=== PATIENT | female | born 1960 | race American Indian/Alaskan Native ===

== ENCOUNTER 2017-07-20 16:34 | Emergency (ER) | payer MEDICAID, OTHER ==
--- NOTE | 2017-07-20 19:07 | EDM.PDOC ---
ED HPI GENERAL MEDICAL PROBLEM - General Chief Complaint: General Stated Complaint: DON'T FEEL GOOD [id number] Time Seen by Provider: 07/20/17 19:04 Source of Information: Reports: Patient History Limitations: Reports: No Limitations - History of Present Illness INITIAL COMMENTS - FREE TEXT/NARRATIVE: 1 week h/o not feeling good not seen anyone and not getting feels worse tonight , also had F/C body aches. been having diarrhoea on off, did eat peanut butter toast today and now feels worse. 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 Head Pain Score (Numeric/FACES): 7 - Related Data Allergies Allergy/AdvReac Type Severity Reaction Status Date / Time amoxicillin Allergy Rash Verified 07/20/17 18:55 ampicillin Allergy Rash Verified 07/20/17 18:55 aspirin Allergy Stomach Verified 07/20/17 18:55 Upset lactose Allergy Diarrhea Verified 07/20/17 18:55 lisinopril Allergy Cough Verified 07/20/17 18:55 Penicillins Allergy Rash Verified 07/20/17 18:55 tomato Allergy Other Verified 07/20/17 18:55 kwell Allergy Other Uncoded 07/20/17 18:55 seasonal allergies Allergy Other Uncoded 07/20/17 18:55 Home Meds: Home Meds Aspirin [Adult Low Dose Aspirin EC] 81 mg PO DAILY 11/17/13 [History] Calcium Citrate/Vitamin D3 [Calcium Citrate - Vit D3 Tab] 1 tab PO BID 11/17/13 [History] Gemfibrozil [Lopid] 600 mg PO BIDAC 11/17/13 [History] Loratadine [Claritin] 10 mg PO DAILY 11/17/13 [History] Losartan [Cozaar] 25 mg PO DAILY 11/17/13 [History] PARoxetine HCl [Paroxetine HCl] 40 mg PO DAILY 11/17/13 [History] Simvastatin [Zocor] 20 mg PO BEDTIME 11/17/13 [History] Insulin Detemir [Levemir] 35 units SQ BID 05/11/14 [History] Omeprazole 20 mg PO DAILY 10/03/14 [History] sitaGLIPtin Phos/Metformin HCl [Janumet 50-1,000 MG] 1 each PO BID 10/03/14 [ History] Past Medical History HEENT History: Reports: Allergic Rhinitis, Impaired Vision Cardiovascular History: Reports: Angina, High Cholesterol, Hypertension Other Respiratory History: has been treated for asthma but states she isn't sure that she has asthma Gastrointestinal History: Reports: Chronic Constipation, Chronic Diarrhea, GERD Genitourinary History: Reports: None 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 Neurological History: Reports: None Psychiatric History: Reports: Panic Attack Endocrine/Metabolic History: Reports: Diabetes, Type II, IDDM, Obesity/BMI 30+ Hematologic History: Reports: None Immunologic History: Reports: None Oncologic (Cancer) History: Reports: None Dermatologic History: Reports: Eczema - Infectious Disease History Infectious Disease History: Reports: MRSA - Past Surgical History Head Surgeries/Procedures: Reports: None GI Surgical History: Reports: Appendectomy, Cholecystectomy Social & Family History - Family History Family Medical History: Noncontributory Endocrine/Metabolic: Reports: Diabetes, type II - Tobacco Use Smoking Status *Q: Never Smoker Years of Tobacco use: 30 Packs/Tins Daily: 2 Used Tobacco, but Quit: Yes Month Tobacco Last Used: 2003 Second Hand Smoke Exposure: No - Caffeine Use Caffeine Use: Reports: Coffee Other Caffeine Use: 2 cup/AM - Alcohol Use Days Per Week of Alcohol Use: 0 - Recreational Drug Use Recreational Drug Use: No - Living Situation & Occupation Living situation: Reports: with Family Occupation: Employed ED ROS GENERAL - Review of Systems Review Of Systems: ROS reveals no pertinent complaints other than HPI. ED EXAM, GENERAL - Physical Exam Exam: See Below Exam Limited By: No Limitations General Appearance: Alert, WD/WN, Mild Distress, Other (discomfort) Ears: Hearing Grossly Normal Throat/Mouth: Normal Voice, No Airway Compromise Head: Atraumatic Neck: Non-Tender, Full Range of Motion Respiratory/Chest: No Respiratory Distress Cardiovascular: Regular Rate, Rhythm GI/Abdominal: Soft, Tender, Other (BS hyper, minimal periumb discomfort). No: Distended, Guarding, Rigid, Rebound Neurological: Alert, Oriented, Normal Cognition, Normal Gait, No Motor/Sensory Deficits Psychiatric: Flat Affect Skin Exam: Warm, Dry, Normal Color Lymphatic: No Adenopathy Course - Vital Signs Last Recorded V/S: Last Vital Signs Temp 36.2 C 07/20/17 18:49 Pulse 82 07/20/17 18:49 Resp 16 07/20/17 18:49 BP 151/76 H 07/20/17 18:49 Pulse Ox 95 07/20/17 18:49 - Orders/Labs/Meds Orders: Active Orders 24 hr Category Date Time Status Dicyclomine [Bentyl] Med 07/20/17 19:46 Once 20 mg IM ONETIME ONE Loperamide [Imodium] Med 07/20/17 19:46 Once 2 mg PO ONETIME ONE Labs: Laboratory Tests 07/20/17 07/20/17 07/20/17 Range/Units 19:10 19:10 19:10 WBC 8.5 (5.0-10.0) 10^3/uL RBC 4.84 (4.2-5.4) 10^6/uL Hgb 13.1 (12.0-16.0) g/dL Hct 40.2 (37.0-47.0) % MCV 83.1 (80-100) fL MCH 27.1 (27.0-34.0) pg MCHC 32.6 L (33.0-35.0) g/dL Plt Count 291 (150-450) 10^3/uL Neut % (Auto) 58.7 (42.2-75.2) % Lymph % (Auto) 33.1 (20.5-50.1) % [place] % (Auto) 6.2 (2-8) % Eos % (Auto) 1.4 (1.0-3.0) % Baso % (Auto) 0.6 (0.0-1.0) % Sodium 135 (135-145) mmol/L Potassium 3.8 (3.6-5.0) mmol/L Chloride 97 L (101-111) mmol/L Carbon Dioxide 29.0 (21.0-31.0) mmol/L Anion Gap 12.8 BUN 16 (7-18) mg/dL Creatinine 0.7 (0.6-1.3) mg/dL Est Cr Clr Drug Dosing 67.72 mL/min Estimated GFR (MDRD) > 60 BUN/Creatinine Ratio 22.85 Glucose 243 H (74-105) mg/dL Lactic Acid 1.6 (0.5-2.2) mmol/L Calcium 9.8 (8.4-10.2) mg/dl Total Bilirubin 0.8 (0.2-1.0) mg/dL AST 37 (10-42) IU/L ALT 31 (10-60) IU/L Alkaline Phosphatase 85 (42-121) IU/L Total Protein 7.3 (6.7-8.2) g/dl Albumin 3.9 (3.2-5.5) g/dl Globulin 3.4 Albumin/Globulin Ratio 1.15 - Re-Assessments/Exams Free Text/Narrative Re-Assessment/Exam: 07/20/17 19:47 results discussed with pt. Departure - Departure Time of Disposition: 19:47 Disposition: Home, Self-Care 01 Condition: Good Clinical Impression: Gastroenteritis and colitis, viral - Discharge Information Instructions: Viral Gastroenteritis, Adult, [id number] Forms: ED Department Discharge Additional Instructions: 1) avoid solid foods next 48 hours 2) follow up at clinic rx given; bentyl 10mg bid prn cramps x 12 imodium qid prn - My Orders Last 24 Hours: My Active Orders 07/20/17 19:46 Dicyclomine [Bentyl] 20 mg IM ONETIME ONE Loperamide [Imodium] 2 mg PO ONETIME ONE - Assessment/Plan Last 24 Hours: My Active Orders 07/20/17 19:46 Dicyclomine [Bentyl] 20 mg IM ONETIME ONE Loperamide [Imodium] 2 mg PO ONETIME ONE
[2017-07-20 19:36] LABS: ANION GAP 12.8; CHLORIDE,CL 97 mmol/L (101-111); SODIUM,NA 135 mmol/L (135-145)
[2017-07-20] MEDS ORDERED: Dicyclomine 20 MG/2 ML SDV IM ONE (19:46)
[2017-07-20] MEDS ORDERED: Loperamide 2 MG Cap PO ONE (19:46)
[2017-07-20 20:13] VITALS: BP 124/78
== END 2017-07-20 20:15 | disposition home or self-care (01) ==
LOC: DL.ED 16:34
DX: A08.4 Viral intestinal infection, unspecified (principal); I10 Essential (primary) hypertension; E78.00 Pure hypercholesterolemia, unspecified; K21.9 Gastro-esophageal reflux disease without esophagitis; E11.9 Type 2 diabetes mellitus without complications; F41.0 Panic disorder [episodic paroxysmal anxiety]; Z87.891 Personal history of nicotine dependence; Z79.4 Long term (current) use of insulin; Z79.82 Long term (current) use of aspirin; Z79.899 Other long term (current) drug therapy; Z88.0 Allergy status to penicillin; Z88.1 Allergy status to other antibiotic agents; Z88.6 Allergy status to analgesic agent; Z88.8 Allergy status to other drugs, medicaments and biological substances; Z91.018 Allergy to other foods; Z91.048 Other nonmedicinal substance allergy status
CPT/HCPCS: 36415; 80053; 83605; 85025; 87804; 96372; 99283; A9270; J0500

== ENCOUNTER 2017-11-30 21:08 | Emergency (ER) | payer OTHER ==
[2017-11-30 21:23] VITALS: BP 131/72
[2017-11-30 21:56] LABS: CHLORIDE,CL 98 mmol/L (101-111); SODIUM,NA 135 mmol/L (135-145)
[2017-11-30] MEDS ORDERED: LORazepam 0.5 MG Tab PO ONE (22:25)
--- NOTE | 2017-11-30 22:31 | EDM.PDOC ---
ED HPI GENERAL MEDICAL PROBLEM - General Chief Complaint: Chest Pain Stated Complaint: CHEST PAIN [id number] Time Seen by Provider: 11/30/17 22:10 Source of Information: Reports: Patient History Limitations: Reports: No Limitations - History of Present Illness INITIAL COMMENTS - FREE TEXT/NARRATIVE: This 57 yo female patient reports to the ED with chest pain. The patient reports her symptoms started at about 1500 today and have been intermittent since that time. The patient reports her symptoms feel like a "heaviness" and like she is starting to have a panic attack. The patient reports her symptoms come and go, but have not gotten much worse since her symptoms started. Onset: Today Onset Date: 11/30/17 Onset Time: 15:00 Duration: Intermittent Location: Reports: Chest Quality: Reports: Other Severity: Moderate Improves with: Reports: None Worsens with: Reports: None Associated Symptoms: Reports: No Other Symptoms Mid-Sternal Chest Pain Score (Numeric/FACES): 6 - Related Data Allergies Allergy/AdvReac Type Severity Reaction Status Date / Time amoxicillin Allergy Rash Verified 11/30/17 21:24 ampicillin Allergy Rash Verified 11/30/17 21:24 aspirin Allergy Stomach Verified 11/30/17 21:24 Upset lactose Allergy Diarrhea Verified 11/30/17 21:24 lisinopril Allergy Cough Verified 11/30/17 21:24 Penicillins Allergy Rash Verified 11/30/17 21:24 tomato Allergy Other Verified 11/30/17 21:24 kwell Allergy Other Uncoded 11/30/17 21:24 seasonal allergies Allergy Other Uncoded 11/30/17 21:24 Home Meds: Home Meds Aspirin [Adult Low Dose Aspirin EC] 81 mg PO DAILY 11/17/13 [History] Calcium Citrate/Vitamin D3 [Calcium Citrate - Vit D3 Tab] 1 tab PO BID 11/17/13 [History] Gemfibrozil [Lopid] 600 mg PO BIDAC 11/17/13 [History] Loratadine [Claritin] 10 mg PO DAILY 11/17/13 [History] Losartan [Cozaar] 25 mg PO DAILY 11/17/13 [History] PARoxetine HCl [Paroxetine HCl] 40 mg PO DAILY 11/17/13 [History] Simvastatin [Zocor] 20 mg PO BEDTIME 11/17/13 [History] Insulin Detemir [Levemir] 35 units SQ BID 05/11/14 [History] Omeprazole 20 mg PO DAILY 10/03/14 [History] sitaGLIPtin Phos/Metformin HCl [Janumet 50-1,000 MG] 1 each PO BID 10/03/14 [ History] Past Medical History HEENT History: Reports: Allergic Rhinitis, Impaired Vision Cardiovascular History: Reports: Angina, High Cholesterol, Hypertension Other Respiratory History: has been treated for asthma but states she isn't sure that she has asthma Gastrointestinal History: Reports: Chronic Constipation, Chronic Diarrhea, GERD 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 Neurological History: Reports: None Psychiatric History: Reports: Panic Attack Endocrine/Metabolic History: Reports: Diabetes, Type II, IDDM, Obesity/BMI 30+ Hematologic History: Reports: None Immunologic History: Reports: None Oncologic (Cancer) History: Reports: None Dermatologic History: Reports: Eczema - Infectious Disease History Infectious Disease History: Reports: MRSA - Past Surgical History Head Surgeries/Procedures: Reports: None GI Surgical History: Reports: Appendectomy, Cholecystectomy Social & Family History - Family History Family Medical History: Noncontributory Endocrine/Metabolic: Reports: Diabetes, type II - Tobacco Use Smoking Status *Q: Never Smoker - Caffeine Use Caffeine Use: Reports: Coffee, Soda Other Caffeine Use: 2 cup/AM - Recreational Drug Use Recreational Drug Use: No - Living Situation & Occupation Living situation: Reports: with Family Occupation: Employed ED ROS GENERAL - Review of Systems Review Of Systems: ROS reveals no pertinent complaints other than HPI. ED EXAM, GENERAL - Physical Exam Exam: See Below Exam Limited By: No Limitations General Appearance: Alert, WD/WN, Mild Distress Eye Exam: Bilateral Eye: EOMI, Normal Inspection, PERRL Ears: Normal External Exam, Normal Canal, Hearing Grossly Normal, Normal TMs Nose: Normal Inspection, Normal Mucosa, No Blood Throat/Mouth: Normal Inspection, Normal Lips, Normal Teeth, Normal Gums, Normal Oropharynx, Normal Voice, No Airway Compromise Head: Atraumatic, Normocephalic Neck: Normal Inspection, Supple, Non-Tender, Full Range of Motion Respiratory/Chest: No Respiratory Distress, Lungs Clear, Normal Breath Sounds, No Accessory Muscle Use, Chest Non-Tender Cardiovascular: Normal Peripheral Pulses, Regular Rate, Rhythm, No Edema, No Gallop, No JVD, No Murmur, No Rub GI/Abdominal: Normal Bowel Sounds, Soft, Non-Tender, No Organomegaly, No Distention, No Abnormal Bruit, No Mass, Pelvis Stable, Other (obese) (Female) Exam: Deferred Rectal (Female) Exam: Deferred Back Exam: Normal Inspection, Full Range of Motion, NT Extremities: Normal Inspection, Normal Range of Motion, Non-Tender, Normal Capillary Refill, No Pedal Edema Neurological: Alert, Oriented, CN II-XII Intact, Normal Cognition, Normal Gait, Normal Reflexes, No Motor/Sensory Deficits Psychiatric: Anxious Skin Exam: Warm, Dry, Intact, Normal Color, No Rash Lymphatic: No Adenopathy Course - Vital Signs Last Recorded V/S: Last Vital Signs Temp 36.3 C 11/30/17 21:12 Pulse 92 11/30/17 21:12 Resp 17 11/30/17 21:12 BP 131/72 11/30/17 21:12 Pulse Ox 97 11/30/17 21:12 - Orders/Labs/Meds Orders: Active Orders 24 hr Category Date Time Status EKG Documentation Completion [RC] URGENT Care 11/30/17 21:16 Ordered DRUG SCREEN URINE BIORAD [URCHEM] Stat Lab 11/30/17 21:16 Ordered UA W/MICROSCOPIC [URIN] Stat Lab 11/30/17 21:16 Ordered Labs: Laboratory Tests 11/30/17 11/30/17 11/30/17 Range/Units 21:29 21:29 21:29 WBC 7.0 (5.0-10.0) 10^3/uL RBC 4.70 (4.2-5.4) 10^6/uL Hgb 12.9 (12.0-16.0) g/dL Hct 38.8 (37.0-47.0) % MCV 82.6 (80-100) fL MCH 27.4 (27.0-34.0) pg MCHC 33.2 (33.0-35.0) g/dL Plt Count 253 (150-450) 10^3/uL Neut % (Auto) 56.9 (42.2-75.2) % Lymph % (Auto) 33.1 (20.5-50.1) % [place] % (Auto) 7.2 (2-8) % Eos % (Auto) 2.1 (1.0-3.0) % Baso % (Auto) 0.7 (0.0-1.0) % Sodium (135-145) mmol/L Potassium (3.6-5.0) mmol/L Chloride (101-111) mmol/L Carbon Dioxide (21.0-31.0) mmol/L Anion Gap BUN (7-18) mg/dL Creatinine (0.6-1.3) mg/dL Est Cr Clr Drug Dosing mL/min Estimated GFR (MDRD) BUN/Creatinine Ratio Glucose (74-105) mg/dL Calcium (8.4-10.2) mg/dl Total Bilirubin (0.2-1.0) mg/dL AST (10-42) IU/L ALT (10-60) IU/L Alkaline Phosphatase (42-121) IU/L Troponin I (0.00-0.02) ng/ml Total Protein (6.7-8.2) g/dl Albumin (3.2-5.5) g/dl Globulin Albumin/Globulin Ratio Urine Color Yellow (YELLOW) Urine Appearance Slightly cloudy (CLEAR) Urine pH 5.5 (5.0-9.0) Ur Specific [place] 1.025 (1.005-1.030) Urine Protein Negative (NEGATIVE) Urine Glucose (UA) 100 H (NEGATIVE) Urine Ketones Negative (NEGATIVE) Urine Occult Blood Negative (NEGATIVE) Urine Nitrite Negative (NEGATIVE) Urine Bilirubin Negative (NEGATIVE) Urine Urobilinogen 0.2 (0.2-1.0) mg/dL Ur Leukocyte Esterase Trace H (NEGATIVE) Urine RBC 0-5 /HPF Urine WBC 0-5 (0-5/HPF) /HPF Ur Epithelial Cells Few /HPF Calcium Oxalate Crystal Moderate H /HPF Urine Bacteria Few (0-FEW/HPF) /HPF Urine Opiates Screen Negative (NEGATIVE) Ur Oxycodone Screen Negative (NEGATIVE) Urine Methadone Screen Negative (NEGATIVE) Ur Barbiturates Screen Negative (NEGATIVE) U Tricyclic Antidepress Negative (NEGATIVE) Ur Phencyclidine Scrn Negative (NEGATIVE) Ur Amphetamine Screen Negative (NEGATIVE) U Methamphetamines Scrn Negative (NEGATIVE) Urine MDMA Screen Negative (NEGATIVE) U Benzodiazepines Scrn Negative (NEGATIVE) Urine Cocaine Screen Negative (NEGATIVE) U Marijuana (THC) Screen Negative (NEGATIVE) 11/30/17 Range/Units 21:29 WBC (5.0-10.0) 10^3/uL RBC (4.2-5.4) 10^6/uL Hgb (12.0-16.0) g/dL Hct (37.0-47.0) % MCV (80-100) fL MCH (27.0-34.0) pg MCHC (33.0-35.0) g/dL Plt Count (150-450) 10^3/uL Neut % (Auto) (42.2-75.2) % Lymph % (Auto) (20.5-50.1) % [place] % (Auto) (2-8) % Eos % (Auto) (1.0-3.0) % Baso % (Auto) (0.0-1.0) % Sodium 135 (135-145) mmol/L Potassium 3.5 L (3.6-5.0) mmol/L Chloride 98 L (101-111) mmol/L Carbon Dioxide 29.0 (21.0-31.0) mmol/L Anion Gap 11.5 BUN 15 (7-18) mg/dL Creatinine 0.7 (0.6-1.3) mg/dL Est Cr Clr Drug Dosing 66.91 mL/min Estimated GFR (MDRD) > 60 BUN/Creatinine Ratio 21.42 Glucose 303 H (74-105) mg/dL Calcium 9.7 (8.4-10.2) mg/dl Total Bilirubin 0.4 (0.2-1.0) mg/dL AST 27 (10-42) IU/L ALT 24 (10-60) IU/L Alkaline Phosphatase 85 (42-121) IU/L Troponin I < 0.02 (0.00-0.02) ng/ml Total Protein 6.6 L (6.7-8.2) g/dl Albumin 3.7 (3.2-5.5) g/dl Globulin 2.9 Albumin/Globulin Ratio 1.28 Urine Color (YELLOW) Urine Appearance (CLEAR) Urine pH (5.0-9.0) Ur Specific [place] (1.005-1.030) Urine Protein (NEGATIVE) Urine Glucose (UA) (NEGATIVE) Urine Ketones (NEGATIVE) Urine Occult Blood (NEGATIVE) Urine Nitrite (NEGATIVE) Urine Bilirubin (NEGATIVE) Urine Urobilinogen (0.2-1.0) mg/dL Ur Leukocyte Esterase (NEGATIVE) Urine RBC /HPF Urine WBC (0-5/HPF) /HPF Ur Epithelial Cells /HPF Calcium Oxalate Crystal /HPF Urine Bacteria (0-FEW/HPF) /HPF Urine Opiates Screen (NEGATIVE) Ur Oxycodone Screen (NEGATIVE) Urine Methadone Screen (NEGATIVE) Ur Barbiturates Screen (NEGATIVE) U Tricyclic Antidepress (NEGATIVE) Ur Phencyclidine Scrn (NEGATIVE) Ur Amphetamine Screen (NEGATIVE) U Methamphetamines Scrn (NEGATIVE) Urine MDMA Screen (NEGATIVE) U Benzodiazepines Scrn (NEGATIVE) Urine Cocaine Screen (NEGATIVE) U Marijuana (THC) Screen (NEGATIVE) Meds: Medications Discontinued Medications Generic Name Dose Route Start Last Admin Trade Name Freq PRN Reason Stop Dose Admin Lorazepam 0.5 mg 11/30/17 22:25 11/30/17 22:30 Ativan PO 11/30/17 22:26 0.5 mg ONETIME ONE Administration Departure - Departure Time of Disposition: 22:32 Disposition: Home, Self-Care 01 Condition: Fair Clinical Impression: Nonspecific chest pain, Anxiety Instructions: Panic Attack, [id number], Nonspecific Chest Pain, [id number] , Living With Anxiety Forms: ED Department Discharge Care Plan Goals: The patient was advised of the examination, lab, EKG and x-ray results during the visit. The patient was given an oral dose of Ativan while in the ED. The patient was encouraged to follow-up with her primary care facility next week for continued evaluation and further management. If the patient has any additional symptoms or concerns, the patient should follow-up with her primary care facility or return to the emergency department. - My Orders Last 24 Hours: My Active Orders 11/30/17 21:16 EKG Documentation Completion [RC] URGENT DRUG SCREEN URINE BIORAD [URCHEM] Stat UA W/MICROSCOPIC [URIN] Stat - Assessment/Plan Last 24 Hours: My Active Orders 11/30/17 21:16 EKG Documentation Completion [RC] URGENT DRUG SCREEN URINE BIORAD [URCHEM] Stat UA W/MICROSCOPIC [URIN] Stat
--- NOTE | 2017-12-04 13:13 | EKG ---
11/30/2017 - SHUN KELLY - TIME: 9:12 p.m. FINDINGS: As per my reading, sinus rhythm at 89, left axis deviation. [facility] /[id number]
== END 2017-11-30 23:30 | disposition home or self-care (01) ==
LOC: DL.ED 21:08
DX: F41.9 Anxiety disorder, unspecified (principal); E78.00 Pure hypercholesterolemia, unspecified; I10 Essential (primary) hypertension; K21.9 Gastro-esophageal reflux disease without esophagitis; E11.9 Type 2 diabetes mellitus without complications; Z88.1 Allergy status to other antibiotic agents; Z88.0 Allergy status to penicillin; Z91.018 Allergy to other foods; Z91.011 Allergy to milk products; Z79.82 Long term (current) use of aspirin; Z79.4 Long term (current) use of insulin
CPT/HCPCS: 36415; 71045; 80053; 80305; 81001; 84484; 85025; 93005; 99285; A9270

== ENCOUNTER 2017-12-02 02:46 | Emergency (ER) | payer OTHER ==
[2017-12-02] MEDS ORDERED: GI Cocktail Oral Solution 30 ML PO ONE (03:00)
[2017-12-02 03:07] VITALS: BP 153/62
--- NOTE | 2017-12-02 03:09 | EDM.PDOC ---
ED HPI GENERAL MEDICAL PROBLEM - General Chief Complaint: Gastrointestinal Problem Stated Complaint: CHEST PAIN, ACID REFULX [id number] Time Seen by Provider: 12/02/17 03:00 Source of Information: Reports: Patient History Limitations: Reports: No Limitations - History of Present Illness INITIAL COMMENTS - FREE TEXT/NARRATIVE: This 57 yo female patient reports to the ED with a burning up into her throat. The patient reports her symptoms started about 1 1/2 hours ago. The patient reports she was just getting ready to go to bed. The patient reports she took the "pink stuff" and the "chalky stuff" with no symptom relief. The patient reports that she does have a history of acid reflux. The patient was seen in the ED for chest pain on 11/30/17 and advised that her symptoms are consistent with acid reflux. The patient also reports she has been taking her Omeprazole, but she reports she has been taking it after she eats. 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(s) Epigastric Pain Score (Numeric/FACES): 7 - Related Data Allergies Allergy/AdvReac Type Severity Reaction Status Date / Time amoxicillin Allergy Rash Verified 11/30/17 21:24 ampicillin Allergy Rash Verified 11/30/17 21:24 aspirin Allergy Stomach Verified 11/30/17 21:24 Upset lactose Allergy Diarrhea Verified 11/30/17 21:24 lisinopril Allergy Cough Verified 11/30/17 21:24 Penicillins Allergy Rash Verified 11/30/17 21:24 tomato Allergy Other Verified 11/30/17 21:24 kwell Allergy Other Uncoded 11/30/17 21:24 seasonal allergies Allergy Other Uncoded 11/30/17 21:24 Home Meds: Home Meds Aspirin [Adult Low Dose Aspirin EC] 81 mg PO DAILY 11/17/13 [History] Calcium Citrate/Vitamin D3 [Calcium Citrate - Vit D3 Tab] 1 tab PO BID 11/17/13 [History] Gemfibrozil [Lopid] 600 mg PO BIDAC 11/17/13 [History] Loratadine [Claritin] 10 mg PO DAILY 11/17/13 [History] Losartan [Cozaar] 25 mg PO DAILY 11/17/13 [History] PARoxetine HCl [Paroxetine HCl] 40 mg PO DAILY 11/17/13 [History] Simvastatin [Zocor] 20 mg PO BEDTIME 11/17/13 [History] Insulin Detemir [Levemir] 35 units SQ BID 05/11/14 [History] Omeprazole 20 mg PO DAILY 10/03/14 [History] sitaGLIPtin Phos/Metformin HCl [Janumet 50-1,000 MG] 1 each PO BID 10/03/14 [ History] Past Medical History HEENT History: Reports: Allergic Rhinitis, Impaired Vision Cardiovascular History: Reports: Angina, High Cholesterol, Hypertension Other Respiratory History: has been treated for asthma but states she isn't sure that she has asthma Gastrointestinal History: Reports: Chronic Constipation, Chronic Diarrhea, GERD 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 Neurological History: Reports: None Psychiatric History: Reports: Panic Attack Endocrine/Metabolic History: Reports: Diabetes, Type II, IDDM, Obesity/BMI 30+ Hematologic History: Reports: None Immunologic History: Reports: None Oncologic (Cancer) History: Reports: None Dermatologic History: Reports: Eczema - Infectious Disease History Infectious Disease History: Reports: MRSA - Past Surgical History Head Surgeries/Procedures: Reports: None GI Surgical History: Reports: Appendectomy, Cholecystectomy Social & Family History - Family History Family Medical History: Noncontributory Endocrine/Metabolic: Reports: Diabetes, type II - Caffeine Use Caffeine Use: Reports: Coffee, Soda Other Caffeine Use: 2 cup/AM - Living Situation & Occupation Living situation: Reports: with Family Occupation: Employed ED ROS GENERAL - Review of Systems Review Of Systems: ROS reveals no pertinent complaints other than HPI. ED EXAM, GI/ABD - Physical Exam Exam: See Below Exam Limited By: No Limitations General Appearance: Alert, WD/WN, Mild Distress Eyes: Bilateral: Normal Appearance, EOMI Ears: Normal External Exam, Normal Canal, Hearing Grossly Normal, Normal TMs Nose: Normal Inspection, Normal Mucosa, No Blood Throat/Mouth: Normal Inspection, Normal Lips, Normal Teeth, Normal Gums, Normal Oropharynx, Normal Voice, No Airway Compromise Head: Atraumatic, Normocephalic Neck: Normal Inspection, Supple, Non-Tender, Full Range of Motion Respiratory/Chest: No Respiratory Distress, Lungs Clear, Normal Breath Sounds, No Accessory Muscle Use, Chest Non-Tender Cardiovascular: Normal Peripheral Pulses, Regular Rate, Rhythm, No Edema, No Gallop, No JVD, No Murmur, No Rub GI/Abdominal Exam: Normal Bowel Sounds, Soft, Non-Tender, No Organomegaly, No Distention, No Abnormal Bruit, No Mass, Pelvis Stable (Female) Exam: Deferred Rectal (Female) Exam: Deferred Back Exam: Normal Inspection Extremities: Normal Inspection, Normal Range of Motion, Non-Tender, Normal Capillary Refill, No Pedal Edema Neurological: Alert, Oriented, CN II-XII Intact, Normal Cognition, Normal Gait, Normal Reflexes, No Motor/Sensory Deficits Psychiatric: Normal Affect, Normal Mood Skin Exam: Warm, Dry, Intact, Normal Color, No Rash Lymphatic: No Adenopathy Course - Vital Signs Last Recorded V/S: Last Vital Signs Temp 36.4 C 12/02/17 03:03 Pulse 94 12/02/17 03:03 Resp 20 12/02/17 03:03 BP 153/62 H 12/02/17 03:03 Pulse Ox 96 12/02/17 03:03 - Orders/Labs/Meds Meds: Medications Discontinued Medications Generic Name Dose Route Start Last Admin Trade Name Yumiko PRN Reason Stop Dose Admin Al Hydroxide/Mg Hydroxide 30 ml 12/02/17 03:00 12/02/17 03:09 Gi Cocktail PO 12/02/17 03:01 30 ml ONETIME ONE Administration - Re-Assessments/Exams Free Text/Narrative Re-Assessment/Exam: 12/02/17 03:37 The patient reports that her symptoms have resolved. Departure - Departure Time of Disposition: 03:37 Disposition: Home, Self-Care 01 Condition: Fair Clinical Impression: GERD (gastroesophageal reflux disease) Qualifiers: Esophagitis presence: with esophagitis Qualified Code(s): K21.0 - Gastro- esophageal reflux disease with esophagitis - Discharge Information Instructions: Gastroesophageal Reflux Disease, Adult Forms: ED Department Discharge Care Plan Goals: The patient was advised of the examination results during the visit. The patient was given a GI cocktail while in the ED which resolved her symptoms. The patient was encouraged to continue on her regular medications as scheduled. The patient should follow-up with her primary care facility for continued evaluation and further management. If the patient has any additional symptoms or concerns, the patient should visit her primary care facility or return to the emergency department.
== END 2017-12-02 03:59 | disposition home or self-care (01) ==
LOC: DL.ED 02:46
DX: K21.0 Gastro-esophageal reflux disease with esophagitis (principal); E78.00 Pure hypercholesterolemia, unspecified; I10 Essential (primary) hypertension; E11.9 Type 2 diabetes mellitus without complications; Z88.1 Allergy status to other antibiotic agents; Z88.6 Allergy status to analgesic agent; Z88.0 Allergy status to penicillin; Z88.8 Allergy status to other drugs, medicaments and biological substances; Z91.018 Allergy to other foods; Z79.82 Long term (current) use of aspirin; Z79.899 Other long term (current) drug therapy; Z79.4 Long term (current) use of insulin
CPT/HCPCS: 99283; A9270

== ENCOUNTER 2018-01-10 19:33 | Emergency (ER) | payer OTHER ==
[2018-01-10] MEDS ORDERED: Gentamicin 0.3% Ophth Soln 5 ML Bottle EYERT ONE (19:34)
[2018-01-10 20:11] VITALS: BP 127/57
--- NOTE | 2018-01-10 20:21 | EDM.PDOC ---
ED HPI GENERAL MEDICAL PROBLEM - General Chief Complaint: ENT Problem Stated Complaint: EYES GUMMY AND BOTHERING HER Time Seen by Provider: 01/10/18 20:16 Source of Information: Reports: Patient History Limitations: Reports: No Limitations - History of Present Illness INITIAL COMMENTS - FREE TEXT/NARRATIVE: onset goopy right eye today. works in [employer]. - Related Data Allergies Allergy/AdvReac Type Severity Reaction Status Date / Time amoxicillin Allergy Rash Verified 11/30/17 21:24 ampicillin Allergy Rash Verified 11/30/17 21:24 aspirin Allergy Stomach Verified 11/30/17 21:24 Upset lactose Allergy Diarrhea Verified 11/30/17 21:24 lisinopril Allergy Cough Verified 11/30/17 21:24 Penicillins Allergy Rash Verified 11/30/17 21:24 tomato Allergy Other Verified 11/30/17 21:24 kwell Allergy Other Uncoded 11/30/17 21:24 seasonal allergies Allergy Other Uncoded 11/30/17 21:24 Home Meds: Home Meds Aspirin [Adult Low Dose Aspirin EC] 81 mg PO DAILY 11/17/13 [History] Calcium Citrate/Vitamin D3 [Calcium Citrate - Vit D3 Tab] 1 tab PO BID 11/17/13 [History] Gemfibrozil [Lopid] 600 mg PO BIDAC 11/17/13 [History] Loratadine [Claritin] 10 mg PO DAILY 11/17/13 [History] Losartan [Cozaar] 25 mg PO DAILY 11/17/13 [History] PARoxetine HCl [Paroxetine HCl] 40 mg PO DAILY 11/17/13 [History] Simvastatin [Zocor] 20 mg PO BEDTIME 11/17/13 [History] Insulin Detemir [Levemir] 35 units SQ BID 05/11/14 [History] Omeprazole 20 mg PO DAILY 10/03/14 [History] sitaGLIPtin Phos/Metformin HCl [Janumet 50-1,000 MG] 1 each PO BID 10/03/14 [ History] Past Medical History HEENT History: Reports: Allergic Rhinitis, Impaired Vision Cardiovascular History: Reports: Angina, High Cholesterol, Hypertension Other Respiratory History: has been treated for asthma but states she isn't sure that she has asthma Gastrointestinal History: Reports: Chronic Constipation, Chronic Diarrhea, GERD Genitourinary History: Reports: None 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 Neurological History: Reports: None Psychiatric History: Reports: Panic Attack Endocrine/Metabolic History: Reports: Diabetes, Type II, IDDM, Obesity/BMI 30+ Hematologic History: Reports: None Immunologic History: Reports: None Oncologic (Cancer) History: Reports: None Dermatologic History: Reports: Eczema - Infectious Disease History Infectious Disease History: Reports: MRSA - Past Surgical History Head Surgeries/Procedures: Reports: None GI Surgical History: Reports: Appendectomy, Cholecystectomy Social & Family History - Family History Family Medical History: Noncontributory Endocrine/Metabolic: Reports: Diabetes, type II - Caffeine Use Caffeine Use: Reports: Coffee, Soda Other Caffeine Use: 2 cup/AM - Living Situation & Occupation Living situation: Reports: with Family Occupation: Employed ED ROS ENT - Review of Systems Review Of Systems: ROS reveals no pertinent complaints other than HPI. ED EXAM, ENT - Physical Exam Exam: See Below Exam Limited By: No Limitations General Appearance: Alert, WD/WN, No Apparent Distress Eye Exam: Right Eye: Conjunctival Injection (mild exudate), Bilateral Eye: PERRL (pupils ER @ 4mm) Ears: Hearing Grossly Normal Mouth/Throat: Normal Inspection Head: Atraumatic Neck: Non-Tender, Full Range of Motion Respiratory/Chest: No Respiratory Distress Cardiovascular: Regular Rate, Rhythm GI/Abdominal: Soft, Non-Tender Neurological: Alert, Oriented, Normal Cognition, Normal Gait, No Motor/Sensory Deficits Psychiatric: Normal Affect, Normal Mood Skin: Warm, Dry, Normal Color Lymphatic: No Adenopathy Course - Vital Signs Last Recorded V/S: Last Vital Signs Temp 36.9 C 01/10/18 20:10 Pulse 79 01/10/18 20:10 Resp 18 01/10/18 20:10 BP 127/57 L 01/10/18 20:10 Pulse Ox 99 01/10/18 20:10 Departure - Departure Time of Disposition: 20:18 Disposition: Home, Self-Care 01 Condition: Good Clinical Impression: Conjunctivitis Qualifiers: Conjunctivitis type: acute Acute conjunctivitis type: bacterial Laterality: right Qualified Code(s): H10.31 - Unspecified acute conjunctivitis, right eye - Discharge Information Instructions: Bacterial Conjunctivitis, [id number] Additional Instructions: 1) don't rub eye 2) avoid neftali areas 3) recheck Jeremiah if not significantly better rx togo; gentamycineye drops qid x 5 days
[2018-01-10] MEDS ORDERED: Gentamicin 0.3% Ophth Soln 5 ML Bottle ONE (20:23)
== END 2018-01-10 20:33 | disposition home or self-care (01) ==
LOC: DL.ED 19:33
DX: H10.31 Unspecified acute conjunctivitis, right eye (principal); E78.00 Pure hypercholesterolemia, unspecified; I10 Essential (primary) hypertension; E11.9 Type 2 diabetes mellitus without complications; Z88.1 Allergy status to other antibiotic agents; Z88.8 Allergy status to other drugs, medicaments and biological substances; Z91.018 Allergy to other foods; Z79.82 Long term (current) use of aspirin; Z79.4 Long term (current) use of insulin
CPT/HCPCS: 99282; A9270-GY

== ENCOUNTER 2018-02-09 01:58 | Emergency (ER) | payer OTHER ==
[2018-02-09] MEDS ORDERED: Ketorolac 30 MG/ML SDV IVPUSH ONE (02:13)
--- NOTE | 2018-02-09 02:17 | EDM.PDOC ---
ED HPI GENERAL MEDICAL PROBLEM - General Chief Complaint: Chest Pain Stated Complaint: NOT FEELING WELL [id number] Time Seen by Provider: 02/09/18 02:14 Source of Information: Reports: Patient History Limitations: Reports: No Limitations - History of Present Illness INITIAL COMMENTS - FREE TEXT/NARRATIVE: been feeling bad since cleaning mouse poop yesterday. been sob & cp & MCDERMOTT. Headache Pain Score (Numeric/FACES): 7 - Related Data Allergies Allergy/AdvReac Type Severity Reaction Status Date / Time amoxicillin Allergy Rash Verified 02/09/18 02:24 ampicillin Allergy Rash Verified 02/09/18 02:24 aspirin Allergy Stomach Verified 02/09/18 02:24 Upset lactose Allergy Diarrhea Verified 02/09/18 02:24 lisinopril Allergy Cough Verified 02/09/18 02:24 Penicillins Allergy Rash Verified 02/09/18 02:24 tomato Allergy Other Verified 02/09/18 02:24 kwell Allergy Other Uncoded 02/09/18 02:24 seasonal allergies Allergy Other Uncoded 02/09/18 02:24 Home Meds: Home Meds Aspirin [Adult Low Dose Aspirin EC] 81 mg PO DAILY 11/17/13 [History] PARoxetine HCl [Paroxetine HCl] 40 mg PO DAILY 11/17/13 [History] Insulin Detemir [Levemir] 45 units SQ BID 05/11/14 [History] Omeprazole 20 mg PO DAILY 10/03/14 [History] Calcium Citrate/Vitamin D3 [Calcium Cit-Vit D 315-200] 1 tab PO BID 02/09/18 [ History] Cetirizine HCl [All Day Allergy] 10 mg PO DAILY 02/09/18 [History] Cholecalciferol (Vitamin D3) [Vitamin D3] 2,000 mg PO DAILY 02/09/18 [History] Insulin Aspart [Novolog Flexpen] 15 units SQ BID 02/09/18 [History] Pioglitazone HCl [Actos] 30 mg PO DAILY 02/09/18 [History] Saxagliptin HCl [Onglyza] 5 mg PO DAILY 02/09/18 [History] atorvaSTATin Calcium [Atorvastatin Calcium] 40 mg PO DAILY 02/09/18 [History] metFORMIN HCl [Metformin HCl] 1,000 mg PO BID 02/09/18 [History] Past Medical History HEENT History: Reports: Allergic Rhinitis, Impaired Vision Cardiovascular History: Reports: Angina, High Cholesterol, Hypertension Other Respiratory History: has been treated for asthma but states she isn't sure that she has asthma Gastrointestinal History: Reports: Chronic Constipation, Chronic Diarrhea, GERD Genitourinary History: Reports: None 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 Neurological History: Reports: None Psychiatric History: Reports: Panic Attack Endocrine/Metabolic History: Reports: Diabetes, Type II, IDDM, Obesity/BMI 30+ Hematologic History: Reports: None Immunologic History: Reports: None Oncologic (Cancer) History: Reports: None Dermatologic History: Reports: Eczema - Infectious Disease History Infectious Disease History: Reports: MRSA - Past Surgical History Head Surgeries/Procedures: Reports: None GI Surgical History: Reports: Appendectomy, Cholecystectomy Social & Family History - Family History Family Medical History: Noncontributory Endocrine/Metabolic: Reports: Diabetes, type II - Caffeine Use Caffeine Use: Reports: Coffee, Soda Other Caffeine Use: 2 cup/AM - Living Situation & Occupation Living situation: Reports: with Family Occupation: Employed ED ROS GENERAL - Review of Systems Review Of Systems: ROS reveals no pertinent complaints other than HPI. ED EXAM, GENERAL - Physical Exam Exam: See Below Exam Limited By: No Limitations General Appearance: Alert, WD/WN, Mild Distress, Other (upset) Ears: Hearing Grossly Normal Throat/Mouth: Normal Voice, No Airway Compromise Head: Atraumatic Neck: Non-Tender, Full Range of Motion Respiratory/Chest: No Respiratory Distress GI/Abdominal: Soft, Non-Tender Neurological: Alert, Oriented, Normal Cognition, Normal Gait, No Motor/Sensory Deficits Psychiatric: Flat Affect Skin Exam: Warm, Dry, Normal Color Lymphatic: No Adenopathy Course - Vital Signs Last Recorded V/S: Last Vital Signs Temp 35.5 C 02/09/18 02:06 Pulse 94 02/09/18 02:06 Resp 18 02/09/18 02:06 BP 166/92 H 02/09/18 02:06 Pulse Ox 99 02/09/18 02:06 - Orders/Labs/Meds Orders: Active Orders 24 hr Category Date Time Status EKG 12 Lead [EKG Documentation Completion] [RC] STAT Care 02/09/18 02:32 Active Labs: Laboratory Tests 02/09/18 02/09/18 Range/Units 02:11 02:11 WBC 5.4 (5.0-10.0) 10^3/uL RBC 5.15 (4.2-5.4) 10^6/uL Hgb 13.9 (12.0-16.0) g/dL Hct 41.7 (37.0-47.0) % MCV 81.0 (80-100) fL MCH 27.0 (27.0-34.0) pg MCHC 33.3 (33.0-35.0) g/dL Plt Count 220 (150-450) 10^3/uL Neut % (Auto) 51.3 (42.2-75.2) % Lymph % (Auto) 37.2 (20.5-50.1) % [place] % (Auto) 9.1 H (2-8) % Eos % (Auto) 1.3 (1.0-3.0) % Baso % (Auto) 1.1 H (0.0-1.0) % Sodium 135 (135-145) mmol/L Potassium 3.3 L (3.6-5.0) mmol/L Chloride 97 L (101-111) mmol/L Carbon Dioxide 27.0 (21.0-31.0) mmol/L Anion Gap 14.3 BUN 12 (7-18) mg/dL Creatinine 0.7 (0.6-1.3) mg/dL Est Cr Clr Drug Dosing 66.91 mL/min Estimated GFR (MDRD) > 60 BUN/Creatinine Ratio 17.14 Glucose 338 H (74-105) mg/dL Calcium 9.8 (8.4-10.2) mg/dl Total Bilirubin 0.4 (0.2-1.0) mg/dL AST 30 (10-42) IU/L ALT 21 (10-60) IU/L Alkaline Phosphatase 94 (42-121) IU/L Troponin I < 0.02 (0.00-0.02) ng/ml Total Protein 7.3 (6.7-8.2) g/dl Albumin 3.9 (3.2-5.5) g/dl Globulin 3.4 Albumin/Globulin Ratio 1.15 Meds: Medications Discontinued Medications Generic Name Dose Route Start Last Admin Trade Name Freq PRN Reason Stop Dose Admin Hydrocodone Bitart/Acetaminophen 1 tab 02/09/18 03:03 02/09/18 03:27 [place] 325-10 Mg PO 02/09/18 03:04 1 tab ONETIME ONE Administration Ketorolac Tromethamine 15 mg 02/09/18 02:13 02/09/18 02:41 Toradol IVPUSH 02/09/18 02:14 15 mg ONETIME ONE Administration Ondansetron HCl 4 mg 02/09/18 02:33 02/09/18 02:43 Zofran IV 02/09/18 02:34 4 mg ONETIME ONE Administration - Re-Assessments/Exams Free Text/Narrative Re-Assessment/Exam: 02/09/18 03:02 results discussed with pt. Departure - Departure Time of Disposition: 03:35 Disposition: Home, Self-Care 01 Condition: Fair Clinical Impression: Atypical chest pain, Migraine aura without headache (migraine equivalents) Instructions: Nonspecific Chest Pain, [id number] Forms: ED Department Discharge Additional Instructions: 1) rest 2) follow up at clinic 3) recheck as needed - My Orders Last 24 Hours: My Active Orders 02/09/18 02:32 EKG 12 Lead [EKG Documentation Completion] [RC] STAT - Assessment/Plan Last 24 Hours: My Active Orders 02/09/18 02:32 EKG 12 Lead [EKG Documentation Completion] [RC] STAT
[2018-02-09 02:24] VITALS: BP 166/92
[2018-02-09] MEDS ORDERED: Ondansetron 4 MG/2 ML SDV IV ONE (02:33)
[2018-02-09 02:39] LABS: ANION GAP 14.3; CHLORIDE,CL 97 mmol/L (101-111); SODIUM,NA 135 mmol/L (135-145)
[2018-02-09] MEDS ORDERED: Acetaminophen/HYDROcodone 325-10 MG Tab PO ONE (03:03)
== END 2018-02-09 03:35 | disposition home or self-care (01) ==
LOC: DL.ED 01:58
DX: G43.109 Migraine with aura, not intractable, without status migrainosus (principal); R07.89 Other chest pain; I10 Essential (primary) hypertension; E11.9 Type 2 diabetes mellitus without complications; E66.9 Obesity, unspecified; Z79.4 Long term (current) use of insulin; Z79.899 Other long term (current) drug therapy; Z88.1 Allergy status to other antibiotic agents; Z88.8 Allergy status to other drugs, medicaments and biological substances; Z91.018 Allergy to other foods
CPT/HCPCS: 36415; 71045; 80053; 84484; 85025; 93005; 96374; 96375; 99285; A9270; J1885; J2405

== ENCOUNTER 2018-03-11 21:47 | Emergency (ER) | payer OTHER ==
[2018-03-11] MEDS ORDERED: Sodium Chloride 0.9% 1,000 ML IV ONE (22:28)
[2018-03-11] MEDS ORDERED: Famotidine 20 MG/2 ML SDV IVPUSH ONE (22:43)
[2018-03-11] MEDS ORDERED: Morphine 4 MG/ML Syringe IVPUSH ONE (22:45)
[2018-03-11 22:58] LABS: ANION GAP 11.3; CHLORIDE,CL 101 mmol/L (101-111); SODIUM,NA 138 mmol/L (135-145)
[2018-03-11] MEDS ORDERED: Iopamidol 612 MG/ML 75 ML Bottle IVPUSH ONE (23:16)
[2018-03-12] MEDS ORDERED: Dicyclomine 20 MG/2 ML SDV IM ONE (00:30)
--- NOTE | 2018-03-12 00:33 | EDM.PDOC ---
ED HPI GENERAL MEDICAL PROBLEM - General Chief Complaint: Gastrointestinal Problem Stated Complaint: STOMACH ACHE [id number] Time Seen by Provider: 03/11/18 22:00 Source of Information: Reports: Patient History Limitations: Reports: No Limitations - History of Present Illness INITIAL COMMENTS - FREE TEXT/NARRATIVE: C/o generalized lower abdominal discomfort, cramping at times, emesis x 1 today. poor appetite No diarrhea. No fever or chills. No other family members ill. Similar episode approximately one year ago. Abdominal Pain Score (Numeric/FACES): 6 - Related Data Allergies Allergy/AdvReac Type Severity Reaction Status Date / Time amoxicillin Allergy Rash Verified 03/11/18 21:58 ampicillin Allergy Rash Verified 03/11/18 21:58 lactose Allergy Diarrhea Verified 03/11/18 21:58 lisinopril Allergy Cough Verified 03/11/18 21:58 Penicillins Allergy Rash Verified 03/11/18 21:58 tomato Allergy Other Verified 03/11/18 21:58 kwell Allergy Other Uncoded 03/11/18 21:58 seasonal allergies Allergy Other Uncoded 03/11/18 21:58 Home Meds: Home Meds Aspirin [Adult Low Dose Aspirin EC] 81 mg PO DAILY 11/17/13 [History] PARoxetine HCl [Paroxetine HCl] 40 mg PO DAILY 11/17/13 [History] Insulin Detemir [Levemir] 45 units SQ BID 05/11/14 [History] Omeprazole 20 mg PO DAILY 10/03/14 [History] Calcium Citrate/Vitamin D3 [Calcium Cit-Vit D 315-200] 1 tab PO BID 02/09/18 [ History] Cetirizine HCl [All Day Allergy] 10 mg PO DAILY 02/09/18 [History] Cholecalciferol (Vitamin D3) [Vitamin D3] 2,000 mg PO DAILY 02/09/18 [History] Insulin Aspart [Novolog Flexpen] 15 units SQ BID 02/09/18 [History] Pioglitazone HCl [Actos] 30 mg PO DAILY 02/09/18 [History] Saxagliptin HCl [Onglyza] 5 mg PO DAILY 02/09/18 [History] atorvaSTATin Calcium [Atorvastatin Calcium] 40 mg PO DAILY 02/09/18 [History] metFORMIN HCl [Metformin HCl] 1,000 mg PO BID 02/09/18 [History] Losartan [Cozaar] 25 mg PO DAILY 03/11/18 [History] Pantoprazole Sodium 40 mg PO DAILY 03/11/18 [History] Past Medical History HEENT History: Reports: Allergic Rhinitis, Impaired Vision Cardiovascular History: Reports: Angina, High Cholesterol, Hypertension Other Respiratory History: has been treated for asthma but states she isn't sure that she has asthma Gastrointestinal History: Reports: Chronic Constipation, Chronic Diarrhea, GERD Genitourinary History: Reports: 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 Neurological History: Reports: None Psychiatric History: Reports: Panic Attack Endocrine/Metabolic History: Reports: Diabetes, Type II, IDDM, Obesity/BMI 30+ Hematologic History: Reports: None Immunologic History: Reports: None Oncologic (Cancer) History: Reports: None Dermatologic History: Reports: Eczema - Infectious Disease History Infectious Disease History: Reports: MRSA - Past Surgical History Head Surgeries/Procedures: Reports: None GI Surgical History: Reports: Appendectomy, Cholecystectomy Social & Family History - Family History Family Medical History: Noncontributory Endocrine/Metabolic: Reports: Diabetes, type II - Tobacco Use Smoking Status *Q: Never Smoker - Caffeine Use Caffeine Use: Reports: Coffee Other Caffeine Use: 2 cup/AM - Recreational Drug Use Recreational Drug Use: No - Living Situation & Occupation Living situation: Reports: with Family Occupation: Employed ED ROS GENERAL - Review of Systems Review Of Systems: See Below Constitutional: Reports: Malaise, Decreased Appetite HEENT: Reports: No Symptoms Respiratory: Reports: No Symptoms Cardiovascular: Reports: No Symptoms Endocrine: Reports: No Symptoms GI/Abdominal: Reports: Abdominal Pain, Decreased Appetite, Nausea, Vomiting : Reports: No Symptoms Musculoskeletal: Reports: No Symptoms Skin: Reports: No Symptoms Neurological: Reports: No Symptoms Psychiatric: Reports: No Symptoms ED EXAM, GI/ABD - Physical Exam Exam: See Below Exam Limited By: No Limitations General Appearance: Alert, Mild Distress Eyes: Bilateral: EOMI Ears: Normal External Exam Nose: Normal Inspection Throat/Mouth: Normal Inspection Head: Atraumatic, Normocephalic Neck: Normal Inspection Respiratory/Chest: No Respiratory Distress, Lungs Clear Cardiovascular: Normal Peripheral Pulses, Regular Rate, Rhythm GI/Abdominal Exam: Tender, Abnormal Bowel Sounds (hyperactive). No: Distended, Guarding, Rebound Back Exam: Normal Inspection, Full Range of Motion Neurological: Alert, Oriented, Normal Cognition Psychiatric: Flat Affect Skin Exam: Warm, Dry, Intact, Normal Color Course - Vital Signs Last Recorded V/S: Last Vital Signs Temp 98.6 F 03/12/18 01:10 Pulse 72 03/12/18 01:10 Resp 18 03/12/18 01:10 BP 124/64 03/12/18 01:10 Pulse Ox 96 03/12/18 01:10 - Orders/Labs/Meds Labs: Laboratory Tests 03/11/18 03/11/18 03/11/18 Range/Units 22:31 22:31 22:47 WBC 9.0 (5.0-10.0) 10^3/uL RBC 4.81 (4.2-5.4) 10^6/uL Hgb 13.0 (12.0-16.0) g/dL Hct 39.3 (37.0-47.0) % MCV 81.7 (80-100) fL MCH 27.0 (27.0-34.0) pg MCHC 33.1 (33.0-35.0) g/dL Plt Count 209 (150-450) 10^3/uL Neut % (Auto) 69.1 (42.2-75.2) % Lymph % (Auto) 21.7 (20.5-50.1) % [place] % (Auto) 7.6 (2-8) % Eos % (Auto) 1.3 (1.0-3.0) % Baso % (Auto) 0.3 (0.0-1.0) % Sodium 138 (135-145) mmol/L Potassium 3.3 L (3.6-5.0) mmol/L Chloride 101 (101-111) mmol/L Carbon Dioxide 29.0 (21.0-31.0) mmol/L Anion Gap 11.3 BUN 8 (7-18) mg/dL Creatinine 0.6 (0.6-1.3) mg/dL Est Cr Clr Drug Dosing 78.06 mL/min Estimated GFR (MDRD) > 60 BUN/Creatinine Ratio 13.33 Glucose 155 H (74-105) mg/dL Calcium 9.1 (8.4-10.2) mg/dl Total Bilirubin 0.6 (0.2-1.0) mg/dL AST 18 (10-42) IU/L ALT 17 (10-60) IU/L Alkaline Phosphatase 82 (42-121) IU/L Total Protein 6.8 (6.7-8.2) g/dl Albumin 3.8 (3.2-5.5) g/dl Globulin 3.0 Albumin/Globulin Ratio 1.27 Amylase 19 L (28-100) U/L Lipase 12 L (22-51) U/L Urine Color Yellow (YELLOW) Urine Appearance Slightly cloudy (CLEAR) Urine pH 7.0 (5.0-9.0) Ur Specific [place] 1.020 (1.005-1.030) Urine Protein Negative (NEGATIVE) Urine Glucose (UA) Negative (NEGATIVE) Urine Ketones Negative (NEGATIVE) Urine Occult Blood Negative (NEGATIVE) Urine Nitrite Negative (NEGATIVE) Urine Bilirubin Negative (NEGATIVE) Urine Urobilinogen 0.2 (0.2-1.0) mg/dL Ur Leukocyte Esterase Small H (NEGATIVE) Urine RBC 0-5 /HPF Urine WBC 10-20 H (0-5/HPF) /HPF Ur Epithelial Cells Few /HPF Amorphous Sediment Rare (0/HPF) /HPF Urine Bacteria Rare (0-FEW/HPF) /HPF Urine Mucus Moderate H /LPF Meds: Medications Discontinued Medications Generic Name Dose Route Start Last Admin Trade Name Freq PRN Reason Stop Dose Admin Dicyclomine HCl 20 mg 03/12/18 00:30 03/12/18 00:49 Bentyl IM 03/12/18 00:31 20 mg ONETIME ONE Administration Famotidine 20 mg 03/11/18 22:43 03/11/18 23:05 Pepcid IVPUSH 03/11/18 22:44 20 mg ONETIME ONE Administration Sodium Chloride 1,000 mls @ 999 mls/min 03/11/18 22:28 03/11/18 23:03 Normal Saline IV 03/11/18 22:29 999 mls/min .BOLUS ONE Administration Iopamidol 75 ml 03/11/18 23:16 03/12/18 00:15 Isovue-300 (61%) IVPUSH 03/11/18 23:17 75 ml ONETIME ONE Administration Morphine Sulfate 2 mg 03/11/18 22:45 03/11/18 23:03 Morphine IVPUSH 03/11/18 22:46 2 mg ONETIME ONE Administration - Radiology Interpretation Free Text/Narrative:: CT abdomen colitis Departure - Departure Time of Disposition: 00:31 Disposition: Home, Self-Care 01 Condition: Good Clinical Impression: Gastroenteritis and colitis, viral - Discharge Information *PRESCRIPTION DRUG MONITORING PROGRAM REVIEWED*: Not Applicable Instructions: Viral Gastroenteritis, Adult, [id number] Referrals: PCP,None [Primary Care Provider] - Forms: ED Department Discharge Additional Instructions: No solids x 48 hours, bentyl 10 mg one twice daily as needed for cramping follow up if worsening pain, fever, vomiting increase fluids 24 hours hold metformin as instructed
[2018-03-12 01:15] VITALS: BP 124/64
== END 2018-03-12 01:12 | disposition home or self-care (01) ==
LOC: DL.ED 21:47
DX: A08.4 Viral intestinal infection, unspecified (principal); I10 Essential (primary) hypertension; E11.9 Type 2 diabetes mellitus without complications; E66.9 Obesity, unspecified; Z88.8 Allergy status to other drugs, medicaments and biological substances; Z91.018 Allergy to other foods; Z79.82 Long term (current) use of aspirin; Z79.899 Other long term (current) drug therapy
CPT/HCPCS: 36415; 74177; 80053; 81001; 82150; 83690; 85025; 96365; 96366; 96372; 96375; 99284; J0500; J2270; J3490; J7030; Q9967

== ENCOUNTER 2018-03-28 18:20 | Emergency (ER) | payer OTHER ==
[2018-03-28 19:12] LABS: ANION GAP 13.9; CHLORIDE,CL 99 mmol/L (101-111); SODIUM,NA 134 mmol/L (135-145)
[2018-03-28] MEDS ORDERED: Albuterol/Ipratropium 3.0-0.5 MG/3 ML Neb Soln NEB ONE (19:17)
--- NOTE | 2018-03-28 19:35 | EDM.PDOC ---
ED HPI GENERAL MEDICAL PROBLEM - General Chief Complaint: Respiratory Problem Stated Complaint: CHEST CONGESTED,FEVER [id number] Time Seen by Provider: 03/28/18 19:00 Source of Information: Reports: Patient History Limitations: Reports: No Limitations - History of Present Illness INITIAL COMMENTS - FREE TEXT/NARRATIVE: C/o cough and congestion for one week, Cough productive at time green phlegm. Body aches, No chills , decreased appetite, lose stoo x 2 today. Chest Pain Score (Numeric/FACES): 3 - Related Data Allergies Allergy/AdvReac Type Severity Reaction Status Date / Time amoxicillin Allergy Rash Verified 03/11/18 21:58 ampicillin Allergy Rash Verified 03/11/18 21:58 lactose Allergy Diarrhea Verified 03/11/18 21:58 lisinopril Allergy Cough Verified 03/11/18 21:58 Penicillins Allergy Rash Verified 03/11/18 21:58 tomato Allergy Other Verified 03/11/18 21:58 kwell Allergy Other Uncoded 03/11/18 21:58 seasonal allergies Allergy Other Uncoded 03/11/18 21:58 Home Meds: Home Meds Aspirin [Adult Low Dose Aspirin EC] 81 mg PO DAILY 11/17/13 [History] PARoxetine HCl [Paroxetine HCl] 40 mg PO DAILY 11/17/13 [History] Insulin Detemir [Levemir] 45 units SQ BID 05/11/14 [History] Omeprazole 20 mg PO DAILY 10/03/14 [History] Calcium Citrate/Vitamin D3 [Calcium Cit-Vit D 315-200] 1 tab PO BID 02/09/18 [ History] Cetirizine HCl [All Day Allergy] 10 mg PO DAILY 02/09/18 [History] Cholecalciferol (Vitamin D3) [Vitamin D3] 2,000 mg PO DAILY 02/09/18 [History] Insulin Aspart [Novolog Flexpen] 15 units SQ BID 02/09/18 [History] Pioglitazone HCl [Actos] 30 mg PO DAILY 02/09/18 [History] Saxagliptin HCl [Onglyza] 5 mg PO DAILY 02/09/18 [History] atorvaSTATin Calcium [Atorvastatin Calcium] 40 mg PO DAILY 02/09/18 [History] metFORMIN HCl [Metformin HCl] 1,000 mg PO BID 02/09/18 [History] Losartan [Cozaar] 25 mg PO DAILY 03/11/18 [History] Pantoprazole Sodium 40 mg PO DAILY 03/11/18 [History] Past Medical History HEENT History: Reports: Allergic Rhinitis, Impaired Vision Cardiovascular History: Reports: Angina, High Cholesterol, Hypertension Other Respiratory History: has been treated for asthma but states she isn't sure that she has asthma Gastrointestinal History: Reports: Chronic Constipation, Chronic Diarrhea, GERD Genitourinary History: Reports: 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 Neurological History: Reports: None Psychiatric History: Reports: Panic Attack Endocrine/Metabolic History: Reports: Diabetes, Type II, IDDM, Obesity/BMI 30+ Hematologic History: Reports: None Immunologic History: Reports: None Oncologic (Cancer) History: Reports: None Dermatologic History: Reports: Eczema - Infectious Disease History Infectious Disease History: Reports: MRSA - Past Surgical History Head Surgeries/Procedures: Reports: None GI Surgical History: Reports: Appendectomy, Cholecystectomy Social & Family History - Family History Family Medical History: Noncontributory Endocrine/Metabolic: Reports: Diabetes, type II - Tobacco Use Smoking Status *Q: Never Smoker - Caffeine Use Caffeine Use: Reports: Coffee, Soda, Tea Other Caffeine Use: 2 cup/AM - Recreational Drug Use Recreational Drug Use: No - Living Situation & Occupation Living situation: Reports: with Family Occupation: Employed ED ROS GENERAL - Review of Systems Review Of Systems: ROS reveals no pertinent complaints other than HPI. ED EXAM, GENERAL - Physical Exam Exam: See Below Exam Limited By: No Limitations General Appearance: Alert, Mild Distress Eye Exam: Bilateral Eye: EOMI Ears: Normal External Exam, Normal TMs Nose: Normal Inspection Throat/Mouth: Other (mild paharngeal erythema) Head: Atraumatic, Normocephalic Neck: Normal Inspection, Full Range of Motion. No: Lymphadenopathy (L), Lymphadenopathy (R) Respiratory/Chest: No Respiratory Distress, Decreased Breath Sounds, Wheezing ( left lower base with forced expiration) Cardiovascular: Normal Peripheral Pulses, Regular Rate, Rhythm GI/Abdominal: Normal Bowel Sounds, Soft, Non-Tender Neurological: Alert, Oriented Psychiatric: Normal Affect Skin Exam: Warm, Dry, Intact, Normal Color Course - Vital Signs Last Recorded V/S: Last Vital Signs Temp 98.2 F 03/28/18 20:06 Pulse 98 03/28/18 20:06 Resp 14 03/28/18 20:06 BP 141/56 H 03/28/18 20:06 Pulse Ox 98 03/28/18 20:06 - Orders/Labs/Meds Orders: Active Orders 24 hr Category Date Time Status RT Aerosol Therapy [RC] ASDIRECTED Care 03/28/18 19:17 Active CULTURE STREP A CONFIRMATION [] Stat Lab 03/28/18 18:45 Results STREP SCRN A RAPID W CULT CONF [] Stat Lab 03/28/18 18:45 Results Labs: Laboratory Tests 03/28/18 03/28/18 Range/Units 18:45 18:45 WBC 6.5 (5.0-10.0) 10^3/uL RBC 4.78 (4.2-5.4) 10^6/uL Hgb 13.0 (12.0-16.0) g/dL Hct 39.3 (37.0-47.0) % MCV 82.2 (80-100) fL MCH 27.2 (27.0-34.0) pg MCHC 33.1 (33.0-35.0) g/dL Plt Count 273 (150-450) 10^3/uL Neut % (Auto) 59.0 (42.2-75.2) % Lymph % (Auto) 31.5 (20.5-50.1) % [place] % (Auto) 7.0 (2-8) % Eos % (Auto) 2.0 (1.0-3.0) % Baso % (Auto) 0.5 (0.0-1.0) % Sodium 134 L (135-145) mmol/L Potassium 3.9 (3.6-5.0) mmol/L Chloride 99 L (101-111) mmol/L Carbon Dioxide 25.0 (21.0-31.0) mmol/L Anion Gap 13.9 BUN 13 (7-18) mg/dL Creatinine 0.8 (0.6-1.3) mg/dL Est Cr Clr Drug Dosing 58.55 mL/min Estimated GFR (MDRD) > 60 BUN/Creatinine Ratio 16.25 Glucose 410 H* (74-105) mg/dL Calcium 8.8 (8.4-10.2) mg/dl Total Bilirubin 0.8 (0.2-1.0) mg/dL AST 33 (10-42) IU/L ALT 26 (10-60) IU/L Alkaline Phosphatase 99 (42-121) IU/L Total Protein 7.0 (6.7-8.2) g/dl Albumin 3.8 (3.2-5.5) g/dl Globulin 3.2 Albumin/Globulin Ratio 1.19 Meds: Medications Discontinued Medications Generic Name Dose Route Start Last Admin Trade Name Yumiko PRN Reason Stop Dose Admin Albuterol Confirm 03/28/18 20:01 03/28/18 20:07 Proventil Hfa Administered 03/28/18 20:02 Not Given Dose 6.7 gm INH .STK-MED ONE Albuterol/Ipratropium 3 ml 03/28/18 19:17 03/28/18 19:20 Duoneb 3.0-0.5 Mg/3 Ml NEB 03/28/18 19:18 3 ml ONETIME ONE Administration Benzonatate 200 mg 03/28/18 19:54 03/28/18 20:11 Tessalon Perles PO 03/28/18 19:55 200 mg ONETIME ONE Administration Benzonatate Confirm 03/28/18 20:01 03/28/18 20:06 Tessalon Perles Administered 03/28/18 20:02 Not Given Dose 200 mg .ROUTE .STK-MED ONE Insulin Detemir 45 unit 03/28/18 19:50 03/28/18 20:11 Levemir SUBCUT 03/28/18 19:51 45 unit ONETIME ONE Administration Insulin Human Regular 10 unit 03/28/18 19:51 03/28/18 20:09 Humulin R SUBCUT 03/28/18 19:52 10 units ONETIME ONE Administration - Radiology Interpretation Free Text/Narrative:: Name: SHUN KELLY Age: 57Years F Date: 03/28/2018 SSN: -- : 1960 Study: XR CHEST 2 VIEWS Requesting Physician: REBA BENJAMIN Images: 2 Addl Studies: Provided Clinical History: Contrast: Contrast Medium: Contrast Amount: Contrast Method: CONFIDENTIALITY STATEMENT This report is intended only for use by the referring physician, and only in accordance with law. If you received this in error, call [phone]. Page 1 of 1 EXAM: XR Chest, 2 Views EXAM DATE/TIME: 03/28/2018 6:53 PM CLINICAL HISTORY: 57 years old, female; Signs and symptoms; Cough and dyspnea TECHNIQUE: XR of the chest, 2 views. COMPARISON: CR Chest 1V Frontal 02/09/2018 2:31 AM FINDINGS: Lungs: Atelectatic and/or fibrotic changes noted within both lung bases. No focal pneumonia. Pleural space: Unremarkable. No pleural effusion. No pneumothorax. Heart/Mediastinum: Unremarkable. No cardiomegaly. Bones/joints: The thoracic spine demonstrates moderate degenerative changes at multiple levels. IMPRESSION: Atelectatic and/or fibrotic changes noted within both lung bases. No focal pneumonia. Thank you for allowing us to participate in the care of your patient. Dictated and Authenticated by: Rogers Newell DO 03/28/2018 7:38 PM Central Time ([place] & [place]) - Re-Assessments/Exams Free Text/Narrative Re-Assessment/Exam: REports [facility] closed today and unable to get refill of insulin she "ordered last month". States completely out and has not had any insulin today. Departure - Departure Time of Disposition: 19:57 Disposition: Home, Self-Care 01 Condition: Good Clinical Impression: Bronchitis - Discharge Information *PRESCRIPTION DRUG MONITORING PROGRAM REVIEWED*: Not Applicable Instructions: Upper Respiratory Infection, Adult, [id number] Referrals: Bill Gayle [Primary Care Provider] - Forms: ED Department Discharge Additional Instructions: albuterol inhaler 2 puffs every 4 hours as needed for cough muccinex per package, to loosen secretions tesselon pearles 200mg every 8 hours as needed for cough increase fluids monitor blood sugars fill prescription for insulin follow up if symptoms worsen humidification - My Orders Last 24 Hours: My Active Orders 03/28/18 19:17 RT Aerosol Therapy [RC] ASDIRECTED - Assessment/Plan Last 24 Hours: My Active Orders 03/28/18 19:17 RT Aerosol Therapy [RC] ASDIRECTED
[2018-03-28] MEDS ORDERED: Insulin Detemir 100 Units/ML 3 ML Pen SUBCUT ONE (19:50)
[2018-03-28] MEDS ORDERED: Insulin Regular, Human 100 Units/ML 3 ML Vial SUBCUT ONE (19:51)
[2018-03-28] MEDS ORDERED: Benzonatate 100 MG Cap PO ONE (19:54)
[2018-03-28] MEDS ORDERED: Benzonatate 100 MG Cap ONE (20:01)
[2018-03-28] MEDS ORDERED: Albuterol 6.7 GM Inhaler INH ONE (20:01)
[2018-03-28 20:06] VITALS: BP 141/56
== END 2018-03-28 20:19 | disposition home or self-care (01) ==
LOC: DL.ED 18:20
DX: J40 Bronchitis, not specified as acute or chronic (principal); E78.00 Pure hypercholesterolemia, unspecified; I10 Essential (primary) hypertension; E11.9 Type 2 diabetes mellitus without complications; Z88.1 Allergy status to other antibiotic agents; Z79.82 Long term (current) use of aspirin; Z79.899 Other long term (current) drug therapy; Z79.4 Long term (current) use of insulin; Z88.8 Allergy status to other drugs, medicaments and biological substances; Z91.011 Allergy to milk products
CPT/HCPCS: 36415; 71046; 80053; 85025; 87081; 87430; 87804; 96372; 99284; A9270; J1815; J7620-GY

== ENCOUNTER 2018-11-23 19:29 | Emergency (ER) | payer MEDICAID, OTHER ==
[2018-11-23] MEDS ORDERED: Azithromycin 250 MG Tab PO ONE (20:46)
--- NOTE | 2018-11-23 20:47 | EDM.PDOC ---
ED HPI GENERAL MEDICAL PROBLEM - General Chief Complaint: ENT Problem Stated Complaint: THROAT IS HURTING Time Seen by Provider: 11/23/18 20:42 Source of Information: Reports: Patient, RN History Limitations: Reports: No Limitations - History of Present Illness INITIAL COMMENTS - FREE TEXT/NARRATIVE: C/O sore throat since yesterday, fever today up to 101. No other c/o. Tolerating liquids without difficulty. Fever responding to tylenol. - Related Data Allergies Allergy/AdvReac Type Severity Reaction Status Date / Time amoxicillin Allergy Rash Verified 11/23/18 19:46 ampicillin Allergy Rash Verified 11/23/18 19:46 lactose Allergy Diarrhea Verified 11/23/18 19:46 lisinopril Allergy Cough Verified 11/23/18 19:46 Penicillins Allergy Rash Verified 11/23/18 19:46 tomato Allergy Other Verified 11/23/18 19:46 kwell Allergy Other Uncoded 11/23/18 19:46 seasonal allergies Allergy Other Uncoded 11/23/18 19:46 Home Meds: Home Meds Aspirin [Adult Low Dose Aspirin EC] 81 mg PO DAILY 11/17/13 [History] PARoxetine HCl [Paroxetine HCl] 40 mg PO DAILY 11/17/13 [History] Insulin Detemir [Levemir] 45 units SQ BID 05/11/14 [History] Omeprazole 20 mg PO DAILY 10/03/14 [History] Calcium Citrate/Vitamin D3 [Calcium Cit-Vit D 315-200] 1 tab PO BID 02/09/18 [ History] Cetirizine HCl [All Day Allergy] 10 mg PO DAILY 02/09/18 [History] Cholecalciferol (Vitamin D3) [Vitamin D3] 2,000 mg PO DAILY 02/09/18 [History] Insulin Aspart [Novolog Flexpen] 15 units SQ BID 02/09/18 [History] Pioglitazone HCl [Actos] 30 mg PO DAILY 02/09/18 [History] Saxagliptin HCl [Onglyza] 5 mg PO DAILY 02/09/18 [History] atorvaSTATin Calcium [Atorvastatin Calcium] 40 mg PO DAILY 02/09/18 [History] metFORMIN HCl [Metformin HCl] 1,000 mg PO BID 02/09/18 [History] Losartan [Cozaar] 25 mg PO DAILY 03/11/18 [History] Pantoprazole Sodium 40 mg PO DAILY 03/11/18 [History] Past Medical History HEENT History: Reports: Allergic Rhinitis, Impaired Vision Cardiovascular History: Reports: Angina, High Cholesterol, Hypertension Other Respiratory History: has been treated for asthma but states she isn't sure that she has asthma Gastrointestinal History: Reports: Chronic Constipation, Chronic Diarrhea, GERD Genitourinary History: Reports: None 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 Neurological History: Reports: None Psychiatric History: Reports: Panic Attack Endocrine/Metabolic History: Reports: Diabetes, Type II, IDDM, Obesity/BMI 30+ Hematologic History: Reports: None Immunologic History: Reports: None Oncologic (Cancer) History: Reports: None Dermatologic History: Reports: Eczema - Infectious Disease History Infectious Disease History: Reports: MRSA - Past Surgical History Head Surgeries/Procedures: Reports: None GI Surgical History: Reports: Appendectomy, Cholecystectomy Social & Family History - Family History Family Medical History: Noncontributory Endocrine/Metabolic: Reports: Diabetes, type II - Caffeine Use Caffeine Use: Reports: Coffee, Soda, Tea Other Caffeine Use: 2 cup/AM - Living Situation & Occupation Living situation: Reports: with Family Occupation: Employed ED ROS ENT - Review of Systems Review Of Systems: ROS reveals no pertinent complaints other than HPI. ED EXAM, ENT - Physical Exam Exam: See Below Exam Limited By: No Limitations General Appearance: Alert, Mild Distress Eye Exam: Bilateral Eye: EOMI Ears: Normal External Exam, Normal TMs Nose: Normal Inspection Mouth/Throat: Pharyngeal Erythema, Tonsillar Erythema, Tonsillar Exudates, Uvular Edema. No: Uvular Deviation Head: Atraumatic, Normocephalic Neck: Normal Inspection, Full Range of Motion Respiratory/Chest: No Respiratory Distress, Lungs Clear, Normal Breath Sounds Cardiovascular: Normal Peripheral Pulses, Regular Rate, Rhythm GI/Abdominal: Normal Bowel Sounds Extremities: Normal Inspection, Normal Range of Motion Neurological: Alert, Oriented, Normal Cognition Psychiatric: Normal Affect, Normal Mood Skin: Warm, Dry, Intact, Normal Color Departure - Departure Time of Disposition: 20:48 Disposition: Home, Self-Care 01 Condition: Good Clinical Impression: Pharyngitis Qualifiers: Pharyngitis/tonsillitis etiology: streptococcus Qualified Code(s): J02.0 - Streptococcal pharyngitis - Discharge Information *PRESCRIPTION DRUG MONITORING PROGRAM REVIEWED*: No *COPY OF PRESCRIPTION DRUG MONITORING REPORT IN PATIENT MANSI: No Instructions: Strep Throat, [id number] Additional Instructions: azithromycin 250mg daily x 4 hadys tylenol 650mg every 4 hours as needed for fever/ discomfort increase fluids gargles follow up if symptoms worsen good handwashing and don't share drinking glasses
[2018-11-23 20:48] VITALS: BP 123/52
== END 2018-11-23 20:57 | disposition home or self-care (01) ==
LOC: DL.ED 19:29
DX: J02.0 Streptococcal pharyngitis (principal); E78.00 Pure hypercholesterolemia, unspecified; I10 Essential (primary) hypertension; E11.9 Type 2 diabetes mellitus without complications; Z88.1 Allergy status to other antibiotic agents; Z88.0 Allergy status to penicillin; Z79.82 Long term (current) use of aspirin; Z79.899 Other long term (current) drug therapy; Z79.4 Long term (current) use of insulin
CPT/HCPCS: 87430; 99283; A9270

== ENCOUNTER 2019-02-15 04:09 | Emergency (ER) | payer MEDICAID ==
[2019-02-15] MEDS ORDERED: GI Cocktail Oral Solution 30 ML PO ONE (04:25)
--- NOTE | 2019-02-15 04:51 | EDM.PDOC ---
ED HPI GENERAL MEDICAL PROBLEM - General Chief Complaint: Gastrointestinal Problem Stated Complaint: CHEST PAIN AND GOING THROUGH BACK Time Seen by Provider: 02/15/19 04:49 Source of Information: Reports: Patient History Limitations: Reports: No Limitations - History of Present Illness INITIAL COMMENTS - FREE TEXT/NARRATIVE: onset low chest epigastric area pain going to back 8pm last night. h/o GERD and atypical chest pains. Mid-Sternal Epigastric Pain Score (Numeric/FACES): 3 - Related Data Allergies Allergy/AdvReac Type Severity Reaction Status Date / Time amoxicillin Allergy Rash Verified 02/15/19 04:17 ampicillin Allergy Rash Verified 02/15/19 04:17 lactose Allergy Diarrhea Verified 02/15/19 04:17 lisinopril Allergy Cough Verified 02/15/19 04:17 Penicillins Allergy Rash Verified 02/15/19 04:17 tomato Allergy Other Verified 02/15/19 04:17 kwell Allergy Other Uncoded 02/15/19 04:17 seasonal allergies Allergy Other Uncoded 02/15/19 04:17 Home Meds: Home Meds Aspirin [Adult Low Dose Aspirin EC] 81 mg PO DAILY 11/17/13 [History] PARoxetine HCl [Paroxetine HCl] 40 mg PO DAILY 11/17/13 [History] Insulin Detemir [Levemir] 45 units SQ BID 05/11/14 [History] Calcium Citrate/Vitamin D3 [Calcium Cit-Vit D 315-200] 1 tab PO BID 02/09/18 [ History] Cetirizine HCl [All Day Allergy] 10 mg PO DAILY 02/09/18 [History] Cholecalciferol (Vitamin D3) [Vitamin D3] 2,000 mg PO DAILY 02/09/18 [History] Insulin Aspart [Novolog Flexpen] 15 units SQ TIDMEALS 02/09/18 [History] Pioglitazone HCl [Actos] 30 mg PO DAILY 02/09/18 [History] Saxagliptin HCl [Onglyza] 5 mg PO DAILY 02/09/18 [History] atorvaSTATin Calcium [Atorvastatin Calcium] 40 mg PO DAILY 02/09/18 [History] metFORMIN HCl [Metformin HCl] 1,000 mg PO BID 02/09/18 [History] Losartan [Cozaar] 25 mg PO DAILY 03/11/18 [History] Pantoprazole Sodium 40 mg PO DAILY 03/11/18 [History] Past Medical History HEENT History: Reports: Allergic Rhinitis, Impaired Vision Cardiovascular History: Reports: Angina, High Cholesterol, Hypertension Other Respiratory History: has been treated for asthma but states she isn't sure that she has asthma Gastrointestinal History: Reports: Chronic Constipation, Chronic Diarrhea, GERD Genitourinary History: Reports: None 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 Neurological History: Reports: None Psychiatric History: Reports: Panic Attack Endocrine/Metabolic History: Reports: Diabetes, Type II, IDDM, Obesity/BMI 30+ Hematologic History: Reports: None Immunologic History: Reports: None Oncologic (Cancer) History: Reports: None Dermatologic History: Reports: Eczema - Infectious Disease History Infectious Disease History: Reports: MRSA - Past Surgical History Head Surgeries/Procedures: Reports: None GI Surgical History: Reports: Appendectomy, Cholecystectomy Social & Family History - Family History Family Medical History: Noncontributory Endocrine/Metabolic: Reports: Diabetes, type II - Tobacco Use Smoking Status *Q: Unknown Ever Smoked - Caffeine Use Caffeine Use: Reports: Coffee, Soda, Tea Other Caffeine Use: 2 cup/AM - Recreational Drug Use Recreational Drug Use: No - Living Situation & Occupation Living situation: Reports: with Family Occupation: Employed ED ROS GENERAL - Review of Systems Review Of Systems: ROS reveals no pertinent complaints other than HPI. ED EXAM, GI/ABD - Physical Exam Exam: See Below Exam Limited By: No Limitations General Appearance: Alert, WD/WN, No Apparent Distress, Other (txting). No: Active Emesis Ears: Hearing Grossly Normal Throat/Mouth: Normal Voice, No Airway Compromise Head: Atraumatic Neck: Non-Tender, Full Range of Motion Respiratory/Chest: No Respiratory Distress Cardiovascular: Regular Rate, Rhythm GI/Abdominal Exam: Soft, Non-Tender. No: Distended, Guarding, Rigid, Rebound Neurological: Alert, Oriented, Normal Cognition, Normal Gait, No Motor/Sensory Deficits Psychiatric: Flat Affect Skin Exam: Warm, Dry, Normal Color Lymphatic: No Adenopathy Course - Vital Signs Last Recorded V/S: Last Vital Signs Temp 36.6 C 02/15/19 06:22 Pulse 72 02/15/19 06:22 Resp 20 02/15/19 06:22 BP 165/69 H 02/15/19 06:22 Pulse Ox 99 02/15/19 06:22 - Orders/Labs/Meds Orders: Active Orders 24 hr Category Date Time Status EKG Documentation Completion [RC] URGENT Care 02/15/19 04:16 Active Sodium Chloride 0.9% [Normal Saline] 1,000 ml Med 02/15/19 05:57 Active IV .BOLUS Medication Orders Sodium Chloride (Normal Saline) 1,000 mls @ 999 mls/hr IV .BOLUS ONE Stop: 02/15/19 06:57 Last Admin: 02/15/19 06:14 Dose: 999 mls/hr Labs: Laboratory Tests 02/15/19 02/15/19 Range/Units 04:55 04:55 WBC 5.9 (5.0-10.0) 10^3/uL RBC 4.57 (4.2-5.4) 10^6/uL Hgb 12.6 (12.0-16.0) g/dL Hct 38.3 (37.0-47.0) % MCV 83.8 (80-100) fL MCH 27.6 (27.0-34.0) pg MCHC 32.9 L (33.0-35.0) g/dL Plt Count 224 (150-450) 10^3/uL Neut % (Auto) 58.0 (42.2-75.2) % Lymph % (Auto) 32.5 (20.5-50.1) % [place] % (Auto) 7.5 (2-8) % Eos % (Auto) 1.5 (1.0-3.0) % Baso % (Auto) 0.5 (0.0-1.0) % Sodium 135 (135-145) mmol/L Potassium 3.6 (3.6-5.0) mmol/L Chloride 99 L (101-111) mmol/L Carbon Dioxide 27.0 (21.0-31.0) mmol/L Anion Gap 12.6 BUN 9 (7-18) mg/dL Creatinine 0.8 (0.6-1.3) mg/dL Est Cr Clr Drug Dosing 66.19 mL/min Estimated GFR (MDRD) > 60 BUN/Creatinine Ratio 11.25 Glucose 432 H* (74-105) mg/dL Calcium 8.5 (8.4-10.2) mg/dl Total Bilirubin 0.4 (0.2-1.0) mg/dL AST 48 H (10-42) IU/L ALT 63 H (10-60) IU/L Alkaline Phosphatase 166 H (42-121) IU/L Troponin I 0.02 (0.00-0.02) ng/ml Total Protein 6.6 L (6.7-8.2) g/dl Albumin 3.5 (3.2-5.5) g/dl Globulin 3.1 Albumin/Globulin Ratio 1.13 Meds: Medications Generic Name Dose Route Start Last Admin Trade Name Freq PRN Reason Stop Dose Admin Sodium Chloride 1,000 mls @ 999 mls/hr 02/15/19 05:57 02/15/19 06:14 Normal Saline IV 02/15/19 06:57 999 mls/hr .BOLUS ONE Administration Discontinued Medications Generic Name Dose Route Start Last Admin Trade Name Freq PRN Reason Stop Dose Admin Al Hydroxide/Mg Hydroxide 30 ml 02/15/19 04:25 02/15/19 04:32 Gi Cocktail PO 02/15/19 04:26 30 ml ONETIME ONE Administration Insulin Human Regular 10 unit 02/15/19 05:57 02/15/19 06:17 Humulin R IV 02/15/19 05:58 10 units ONETIME ONE Administration - Re-Assessments/Exams Free Text/Narrative Re-Assessment/Exam: 02/15/19 06:54 re-exam; BS 300 Departure - Departure Time of Disposition: 06:54 Disposition: Home, Self-Care 01 Condition: Good Clinical Impression: Atypical chest pain, Uncontrolled type 2 diabetes mellitus with hyperglycemia, with long-term current use of insulin - Discharge Information Forms: ED Department Discharge Additional Instructions: 1) follow up with clinic - My Orders Last 24 Hours: My Active Orders 02/15/19 04:16 EKG Documentation Completion [RC] URGENT 02/15/19 05:57 Sodium Chloride 0.9% [Normal Saline] 1,000 ml IV .BOLUS - Assessment/Plan Last 24 Hours: My Active Orders 02/15/19 04:16 EKG Documentation Completion [RC] URGENT 02/15/19 05:57 Sodium Chloride 0.9% [Normal Saline] 1,000 ml IV .BOLUS
[2019-02-15 05:21] LABS: ANION GAP 12.6; CHLORIDE,CL 99 mmol/L (101-111); SODIUM,NA 135 mmol/L (135-145)
[2019-02-15] MEDS ORDERED: Insulin Regular, Human 100 Units/ML 3 ML Vial IV ONE (05:57)
[2019-02-15] MEDS ORDERED: Sodium Chloride 0.9% 1,000 ML IV ONE (05:57)
[2019-02-15 06:24] VITALS: BP 165/69
== END 2019-02-15 07:21 | disposition home or self-care (01) ==
LOC: DL.ED 04:09
DX: R07.89 Other chest pain (principal); E11.65 Type 2 diabetes mellitus with hyperglycemia; I10 Essential (primary) hypertension; K21.9 Gastro-esophageal reflux disease without esophagitis; F41.0 Panic disorder [episodic paroxysmal anxiety]; E78.00 Pure hypercholesterolemia, unspecified; E66.9 Obesity, unspecified; Z68.36 Body mass index [BMI] 36.0-36.9, adult; Z88.0 Allergy status to penicillin; Z88.1 Allergy status to other antibiotic agents; Z91.018 Allergy to other foods; Z79.82 Long term (current) use of aspirin; Z79.899 Other long term (current) drug therapy; Z79.4 Long term (current) use of insulin
CPT/HCPCS: 36415; 80053; 82962; 84484; 85025; 93005; 96360; 99285; A9270; J1815; J7030

== ENCOUNTER 2019-07-26 19:16 | Emergency (ER) | payer MEDICAID ==
[2019-07-26 19:52] VITALS: BP 130/69; PULSE 87
--- NOTE | 2019-07-26 20:24 | EDM.PDOC ---
ED HPI GENERAL MEDICAL PROBLEM - General Chief Complaint: Lower Extremity Injury/Pain Stated Complaint: ANKLE PAIN Time Seen by Provider: 07/26/19 19:45 Source of Information: Reports: Patient History Limitations: Reports: No Limitations - History of Present Illness INITIAL COMMENTS - FREE TEXT/NARRATIVE: ED per wheelchair reports tripped on dog and rolled right ankle this luis. Partial weight bearing, pain ore on outer ankle, swelling. 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 Right Ankle Pain Score (Numeric/FACES): 8 - Related Data Allergies Allergy/AdvReac Type Severity Reaction Status Date / Time amoxicillin Allergy Rash Verified 02/15/19 04:17 ampicillin Allergy Rash Verified 02/15/19 04:17 lactose Allergy Diarrhea Verified 02/15/19 04:17 lisinopril Allergy Cough Verified 02/15/19 04:17 Penicillins Allergy Rash Verified 02/15/19 04:17 tomato Allergy Other Verified 02/15/19 04:17 kwell Allergy Other Uncoded 02/15/19 04:17 seasonal allergies Allergy Other Uncoded 02/15/19 04:17 Home Meds: Home Meds Aspirin [Adult Low Dose Aspirin EC] 81 mg PO DAILY 11/17/13 [History] PARoxetine HCl [Paroxetine HCl] 40 mg PO DAILY 11/17/13 [History] Insulin Detemir [Levemir] 45 units SQ BID 05/11/14 [History] Calcium Citrate/Vitamin D3 [Calcium Cit-Vit D 315-200] 1 tab PO BID 02/09/18 [ History] Cetirizine HCl [All Day Allergy] 10 mg PO DAILY 02/09/18 [History] Cholecalciferol (Vitamin D3) [Vitamin D3] 2,000 mg PO DAILY 02/09/18 [History] Insulin Aspart [Novolog Flexpen] 15 units SQ TIDMEALS 02/09/18 [History] Pioglitazone HCl [Actos] 30 mg PO DAILY 02/09/18 [History] Saxagliptin HCl [Onglyza] 5 mg PO DAILY 02/09/18 [History] atorvaSTATin Calcium [Atorvastatin Calcium] 40 mg PO DAILY 02/09/18 [History] metFORMIN HCl [Metformin HCl] 1,000 mg PO BID 02/09/18 [History] Losartan [Cozaar] 25 mg PO DAILY 03/11/18 [History] Pantoprazole Sodium 40 mg PO DAILY 03/11/18 [History] Past Medical History HEENT History: Reports: Allergic Rhinitis, Impaired Vision Cardiovascular History: Reports: Angina, High Cholesterol, Hypertension Other Respiratory History: has been treated for asthma but states she isn't sure that she has asthma Gastrointestinal History: Reports: Chronic Constipation, Chronic Diarrhea, GERD Genitourinary History: Reports: None POWDER HAND History: Reports: 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 Neurological History: Reports: None Psychiatric History: Reports: Panic Attack Endocrine/Metabolic History: Reports: Diabetes, Type II, IDDM, Obesity/BMI 30+ Hematologic History: Reports: None Immunologic History: Reports: None Oncologic (Cancer) History: Reports: None Dermatologic History: Reports: Eczema - Infectious Disease History Infectious Disease History: Reports: MRSA - Past Surgical History Head Surgeries/Procedures: Reports: None GI Surgical History: Reports: Appendectomy, Cholecystectomy Social & Family History - Family History Family Medical History: Noncontributory Endocrine/Metabolic: Reports: Diabetes, type II - Tobacco Use Smoking Status *Q: Never Smoker - Caffeine Use Caffeine Use: Reports: Coffee, Soda, Tea Other Caffeine Use: 2 cup/AM - Recreational Drug Use Recreational Drug Use: No - Living Situation & Occupation Living situation: Reports: with Family Occupation: Employed Review of Systems - Review of Systems Review Of Systems: Comprehensive ROS is negative, except as noted in HPI. ED EXAM, GENERAL - Physical Exam Exam: See Below Exam Limited By: No Limitations General Appearance: Alert, Mild Distress Eye Exam: Bilateral Eye: EOMI Ears: Hearing Grossly Normal Throat/Mouth: Normal Voice, No Airway Compromise Respiratory/Chest: Normal Breath Sounds Cardiovascular: Regular Rate, Rhythm Back Exam: Full Range of Motion Extremities: Joint Swelling (right lateral ankle), Limited Range of Motion Neurological: Alert, Oriented, Normal Cognition Psychiatric: Normal Affect Skin Exam: Warm, Dry, Intact, Normal Color Course - Vital Signs Last Recorded V/S: Last Vital Signs Temp 96.1 F 07/26/19 19:40 Pulse 87 07/26/19 19:40 Resp 16 07/26/19 19:40 BP 130/69 07/26/19 19:40 Pulse Ox 97 07/26/19 19:40 - Orders/Labs/Meds Orders: Active Orders 24 hr Category Date Time Status Ankle Min 3V Rt [CR] Urgent Exams 07/26/19 19:37 Taken - Radiology Interpretation Free Text/Narrative:: [facility] [place] [facility] Final Radiology Report Call: [phone] assistance Online chat: [email or web address] Name: SHUN KELLY Age: 58Years F Date: 07/26/2019 SSN: -- : [id number] Study: XR ANKLE COMPLETE MIN 3 VIEWS RIGHT Requesting Physician: LENORE LOMAX Images: 3 Addl Studies: Provided Clinical History: Contrast: Contrast Medium: Contrast Amount: Contrast Method: CONFIDENTIALITY STATEMENT This report is intended only for use by the referring physician, and only in accordance with law. If you received this in error, call [phone]. Page 1 of 1 PROCEDURE INFORMATION: Exam: XR Right Ankle Exam date and time: 07/26/2019 7:53 PM Age: 58 years old Clinical indication: Other: Rolled ankle/pain TECHNIQUE: Imaging protocol: XR Right ankle. Views: 3 or more views. COMPARISON: No relevant prior studies available. 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 Large dorsal and plantar calcaneal spurs. Ankle joint effusion is noted. No acute bony abnormality or displacement. Soft tissues: Normal. IMPRESSION: 1. 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 2. Large dorsal and plantar calcaneal spurs. 3. Ankle joint effusion is noted. 4. No acute bony abnormality or displacement. Thank you for allowing us to participate in the care of your patient. Dictated and Authenticated by: Rolando Emmanuel Departure - Departure Time of Disposition: 20:19 Disposition: Home, Self-Care 01 Condition: Good Clinical Impression: Right ankle sprain Qualifiers: Encounter type: initial encounter Involved ligament of ankle: unspecified ligament Qualified Code(s): S93.401A - Sprain of unspecified ligament of right ankle, initial encounter - Discharge Information *PRESCRIPTION DRUG MONITORING PROGRAM REVIEWED*: No *COPY OF PRESCRIPTION DRUG MONITORING REPORT IN PATIENT MANSI: No Instructions: How to Use a Stirrup Ankle Brace, [id number] Referrals: Mera Jaramillo NP [Primary Care Provider] - Forms: ED Department Discharge Additional Instructions: rest ice elevation, splint-stirrup follow up one week if not improving weight bearing as tolerated alternate tylenol 650mg and ibuprofen 600mg every 4 hours as needed for pain Sepsis Event Note - Evaluation Sepsis Screening Result: No Definite Risk - Focused Exam Vital Signs: Vital Signs Temp Pulse Resp BP Pulse Ox 07/26/19 19:40 96.1 F 87 16 130/69 97 Date Exam was Performed: 07/26/19 Time Exam was Performed: 21:06 - My Orders Last 24 Hours: My Active Orders 07/26/19 19:37 Ankle Min 3V Rt [CR] Urgent - Assessment/Plan Last 24 Hours: My Active Orders 07/26/19 19:37 Ankle Min 3V Rt [CR] Urgent
== END 2019-07-26 20:40 | disposition home or self-care (01) ==
LOC: DL.ED 19:16
DX: S93.401A Sprain of unspecified ligament of right ankle, initial encounter (principal); K21.9 Gastro-esophageal reflux disease without esophagitis; E78.00 Pure hypercholesterolemia, unspecified; I10 Essential (primary) hypertension; E11.9 Type 2 diabetes mellitus without complications; E66.9 Obesity, unspecified; Z68.41 Body mass index [BMI] 40.0-44.9, adult; Z79.4 Long term (current) use of insulin; Z79.899 Other long term (current) drug therapy; Z79.82 Long term (current) use of aspirin; Z88.0 Allergy status to penicillin; Z88.1 Allergy status to other antibiotic agents; Z88.8 Allergy status to other drugs, medicaments and biological substances; Z91.011 Allergy to milk products; Z91.018 Allergy to other foods; Z91.09 Other allergy status, other than to drugs and biological substances; W01.0XXA Fall on same level from slipping, tripping and stumbling without subsequent striking against object, initial encounter; X50.1XXA Overexertion from prolonged static or awkward postures, initial encounter
CPT/HCPCS: 73610-RT; 99283-25

== ENCOUNTER 2019-08-04 00:04 | Emergency (ER) | payer MEDICAID ==
--- NOTE | 2019-08-04 00:14 | EDM.PDOC ---
ED HPI GENERAL MEDICAL PROBLEM - General Stated Complaint: AMB Time Seen by Provider: 08/04/19 00:05 Source of Information: Reports: Patient, EMS History Limitations: Reports: No Limitations - History of Present Illness INITIAL COMMENTS - FREE TEXT/NARRATIVE: This 58 yo female patient was brought to the ED by [facility] due to chest pain. The patient reports her chest pain started at about 2245 (08/03/19). The patient reports she took some insulin and a baby aspirin at symptom onset. EMS reports upon arrival the patient reported a sharp stabbing pain rated at an 8/10. The patient was given 3 additional 81 mg Aspirin and 1 dose of Nitro. The patient reports her pain was a dull pain in the middle of her chest, rated at a 6/10 upon arrival in the ED. The patient reports she has not been taking her regular medications as she ran out of her medications on Saturday. The patient reports she forgot to fill her medications yesterday. 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 (by self and EMS), Nitroglycerin (by ems) Mid-Sternal Chest Pain Score (Numeric/FACES): 6 - Related Data Allergies Allergy/AdvReac Type Severity Reaction Status Date / Time amoxicillin Allergy Rash Verified 02/15/19 04:17 ampicillin Allergy Rash Verified 02/15/19 04:17 lactose Allergy Diarrhea Verified 02/15/19 04:17 lisinopril Allergy Cough Verified 02/15/19 04:17 Penicillins Allergy Rash Verified 02/15/19 04:17 tomato Allergy Other Verified 02/15/19 04:17 kwell Allergy Other Uncoded 02/15/19 04:17 seasonal allergies Allergy Other Uncoded 02/15/19 04:17 Home Meds: Home Meds Aspirin [Adult Low Dose Aspirin EC] 81 mg PO DAILY 11/17/13 [History] PARoxetine HCl [Paroxetine HCl] 40 mg PO DAILY 11/17/13 [History] Insulin Detemir [Levemir] 45 units SQ BID 05/11/14 [History] Calcium Citrate/Vitamin D3 [Calcium Cit-Vit D 315-200] 1 tab PO BID 02/09/18 [ History] Cetirizine HCl [All Day Allergy] 10 mg PO DAILY 02/09/18 [History] Cholecalciferol (Vitamin D3) [Vitamin D3] 2,000 mg PO DAILY 02/09/18 [History] Insulin Aspart [Novolog Flexpen] 15 units SQ TIDMEALS 02/09/18 [History] Pioglitazone HCl [Actos] 30 mg PO DAILY 02/09/18 [History] Saxagliptin HCl [Onglyza] 5 mg PO DAILY 02/09/18 [History] atorvaSTATin Calcium [Atorvastatin Calcium] 40 mg PO DAILY 02/09/18 [History] metFORMIN HCl [Metformin HCl] 1,000 mg PO BID 02/09/18 [History] Losartan [Cozaar] 25 mg PO DAILY 03/11/18 [History] Pantoprazole Sodium 40 mg PO DAILY 03/11/18 [History] Past Medical History HEENT History: Reports: Allergic Rhinitis, Impaired Vision Cardiovascular History: Reports: Angina, High Cholesterol, Hypertension Other Respiratory History: has been treated for asthma but states she isn't sure that she has asthma Gastrointestinal History: Reports: Chronic Constipation, Chronic Diarrhea, GERD Genitourinary History: Reports: None 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 Neurological History: Reports: None Psychiatric History: Reports: Panic Attack Endocrine/Metabolic History: Reports: Diabetes, Type II, IDDM, Obesity/BMI 30+ Hematologic History: Reports: None Immunologic History: Reports: None Oncologic (Cancer) History: Reports: None Dermatologic History: Reports: Eczema - Infectious Disease History Infectious Disease History: Reports: MRSA - Past Surgical History Head Surgeries/Procedures: Reports: None GI Surgical History: Reports: Appendectomy, Cholecystectomy Social & Family History - Family History Family Medical History: Noncontributory Endocrine/Metabolic: Reports: Diabetes, type II - Caffeine Use Caffeine Use: Reports: Coffee, Soda, Tea Other Caffeine Use: 2 cup/AM - Living Situation & Occupation Living situation: Reports: with Family Occupation: Employed ED ROS GENERAL - Review of Systems Review Of Systems: Comprehensive ROS is negative, except as noted in HPI. ED EXAM, GENERAL - Physical Exam Exam: See Below Exam Limited By: No Limitations General Appearance: Alert, WD/WN, Mild Distress, Obese Eye Exam: Bilateral Eye: EOMI, Normal Inspection, PERRL Ears: Normal External Exam, Normal Canal, Hearing Grossly Normal, Normal TMs Nose: Normal Inspection, Normal Mucosa, No Blood Throat/Mouth: Normal Inspection, Normal Lips, Normal Teeth, Normal Gums, Normal Oropharynx, Normal Voice, No Airway Compromise Head: Atraumatic, Normocephalic Neck: Normal Inspection, Supple, Non-Tender, Full Range of Motion Respiratory/Chest: No Respiratory Distress, Lungs Clear, Normal Breath Sounds, No Accessory Muscle Use, Chest Non-Tender Cardiovascular: Normal Peripheral Pulses, Regular Rate, Rhythm, No Edema, No Gallop, No JVD, No Murmur, No Rub GI/Abdominal: Normal Bowel Sounds, Soft, Non-Tender, No Organomegaly, No Distention, No Abnormal Bruit, No Mass (Female) Exam: Deferred Rectal (Female) Exam: Deferred Extremities: Normal Inspection, Normal Range of Motion, Non-Tender, Normal Capillary Refill, No Pedal Edema Neurological: Alert, Oriented, Normal Cognition, No Motor/Sensory Deficits Psychiatric: Normal Affect, Normal Mood Skin Exam: Warm, Dry, Intact, Normal Color, No Rash Lymphatic: No Adenopathy Course - Vital Signs Last Recorded V/S: Last Vital Signs Temp 36.5 C 08/04/19 01:27 Pulse 112 H 08/04/19 01:27 Resp 12 08/04/19 01:27 BP 159/88 H 08/04/19 01:27 Pulse Ox 99 08/04/19 01:27 - Orders/Labs/Meds Orders: Active Orders 24 hr Category Date Time Status Blood Glucose Check, Bedside [RC] ONETIME Care 08/04/19 01:45 Active Blood Glucose Check, Bedside [RC] ONETIME Care 08/04/19 02:45 Active Blood Glucose Check, Bedside [RC] ONETIME Care 08/04/19 03:45 Active EKG Documentation Completion [RC] URGENT Care 08/04/19 00:07 Active Chest 1V Frontal [CR] Urgent Exams 08/04/19 00:07 Taken Labs: Laboratory Tests 08/04/19 08/04/19 08/04/19 Range/Units 00:01 00:11 00:11 WBC 6.4 (5.0-10.0) 10^3/uL RBC 4.71 (4.2-5.4) 10^6/uL Hgb 13.4 (12.0-16.0) g/dL Hct 38.9 (37.0-47.0) % MCV 82.6 (80-100) fL MCH 28.5 (27.0-34.0) pg MCHC 34.4 (33.0-35.0) g/dL Plt Count 232 (150-450) 10^3/uL Neut % (Auto) 59.6 (42.2-75.2) % Lymph % (Auto) 31.5 (20.5-50.1) % Lassen % (Auto) 6.9 (2-8) % Eos % (Auto) 1.2 (1.0-3.0) % Baso % (Auto) 0.8 (0.0-1.0) % D-Dimer, Quantitative 103 (0-400) ng/mL Sodium (135-145) mmol/L Potassium (3.6-5.0) mmol/L Chloride (101-111) mmol/L Carbon Dioxide (21.0-31.0) mmol/L Anion Gap BUN (7-18) mg/dL Creatinine (0.6-1.3) mg/dL Est Cr Clr Drug Dosing mL/min Estimated GFR (MDRD) BUN/Creatinine Ratio Glucose (74-105) mg/dL POC Glucose (70-105) mg/dl Calcium (8.4-10.2) mg/dl Total Bilirubin (0.2-1.0) mg/dL AST (10-42) IU/L ALT (10-60) IU/L Alkaline Phosphatase (42-121) IU/L Troponin I (0.00-0.02) ng/ml Total Protein (6.7-8.2) g/dl Albumin (3.2-5.5) g/dl Globulin Albumin/Globulin Ratio Urine Color Yellow (YELLOW) Urine Appearance Clear (CLEAR) Urine pH 6.5 (5.0-9.0) Ur Specific [place] 1.010 (1.005-1.030) Urine Protein Negative (NEGATIVE) Urine Glucose (UA) 500 H (NEGATIVE) Urine Ketones Negative (NEGATIVE) Urine Occult Blood Trace-intact H (NEGATIVE) Urine Nitrite Negative (NEGATIVE) Urine Bilirubin Negative (NEGATIVE) Urine Urobilinogen 0.2 (0.2-1.0) mg/dL Ur Leukocyte Esterase Negative (NEGATIVE) Urine RBC 0-5 /HPF Urine WBC Not seen (0-5/HPF) /HPF Ur Epithelial Cells Few (NOT SEEN) /HPF Amorphous Sediment Rare (NOT SEEN) /HPF Urine Bacteria Rare (0-FEW/HPF) /HPF Urine Mucus Occasional (NOT SEEN) /LPF Ketones 08/04/19 08/04/19 08/04/19 Range/Units 00:11 01:45 02:45 WBC (5.0-10.0) 10^3/uL RBC (4.2-5.4) 10^6/uL Hgb (12.0-16.0) g/dL Hct (37.0-47.0) % MCV (80-100) fL MCH (27.0-34.0) pg MCHC (33.0-35.0) g/dL Plt Count (150-450) 10^3/uL Neut % (Auto) (42.2-75.2) % Lymph % (Auto) (20.5-50.1) % Lassen % (Auto) (2-8) % Eos % (Auto) (1.0-3.0) % Baso % (Auto) (0.0-1.0) % D-Dimer, Quantitative (0-400) ng/mL Sodium 134 L (135-145) mmol/L Potassium 4.0 (3.6-5.0) mmol/L Chloride 98 L (101-111) mmol/L Carbon Dioxide 26.0 (21.0-31.0) mmol/L Anion Gap 14.0 BUN 15 (7-18) mg/dL Creatinine 0.8 (0.6-1.3) mg/dL Est Cr Clr Drug Dosing 57.84 mL/min Estimated GFR (MDRD) > 60 BUN/Creatinine Ratio 18.75 Glucose 496 H* (74-105) mg/dL POC Glucose 323 H 264 H (70-105) mg/dl Calcium 9.5 (8.4-10.2) mg/dl Total Bilirubin 0.7 (0.2-1.0) mg/dL AST 19 (10-42) IU/L ALT 20 (10-60) IU/L Alkaline Phosphatase 158 H (42-121) IU/L Troponin I < 0.02 (0.00-0.02) ng/ml Total Protein 7.3 (6.7-8.2) g/dl Albumin 4.2 (3.2-5.5) g/dl Globulin 3.1 Albumin/Globulin Ratio 1.35 Urine Color (YELLOW) Urine Appearance (CLEAR) Urine pH (5.0-9.0) Ur Specific [place] (1.005-1.030) Urine Protein (NEGATIVE) Urine Glucose (UA) (NEGATIVE) Urine Ketones (NEGATIVE) Urine Occult Blood (NEGATIVE) Urine Nitrite (NEGATIVE) Urine Bilirubin (NEGATIVE) Urine Urobilinogen (0.2-1.0) mg/dL Ur Leukocyte Esterase (NEGATIVE) Urine RBC /HPF Urine WBC (0-5/HPF) /HPF Ur Epithelial Cells (NOT SEEN) /HPF Amorphous Sediment (NOT SEEN) /HPF Urine Bacteria (0-FEW/HPF) /HPF Urine Mucus (NOT SEEN) /LPF Ketones Negative 08/04/19 08/04/19 Range/Units 03:48 04:17 WBC (5.0-10.0) 10^3/uL RBC (4.2-5.4) 10^6/uL Hgb (12.0-16.0) g/dL Hct (37.0-47.0) % MCV (80-100) fL MCH (27.0-34.0) pg MCHC (33.0-35.0) g/dL Plt Count (150-450) 10^3/uL Neut % (Auto) (42.2-75.2) % Lymph % (Auto) (20.5-50.1) % Lassen % (Auto) (2-8) % Eos % (Auto) (1.0-3.0) % Baso % (Auto) (0.0-1.0) % D-Dimer, Quantitative (0-400) ng/mL Sodium (135-145) mmol/L Potassium (3.6-5.0) mmol/L Chloride (101-111) mmol/L Carbon Dioxide (21.0-31.0) mmol/L Anion Gap BUN (7-18) mg/dL Creatinine (0.6-1.3) mg/dL Est Cr Clr Drug Dosing mL/min Estimated GFR (MDRD) BUN/Creatinine Ratio Glucose (74-105) mg/dL POC Glucose 332 H (70-105) mg/dl Calcium (8.4-10.2) mg/dl Total Bilirubin (0.2-1.0) mg/dL AST (10-42) IU/L ALT (10-60) IU/L Alkaline Phosphatase (42-121) IU/L Troponin I 0.03 H* (0.00-0.02) ng/ml Total Protein (6.7-8.2) g/dl Albumin (3.2-5.5) g/dl Globulin Albumin/Globulin Ratio Urine Color (YELLOW) Urine Appearance (CLEAR) Urine pH (5.0-9.0) Ur Specific [place] (1.005-1.030) Urine Protein (NEGATIVE) Urine Glucose (UA) (NEGATIVE) Urine Ketones (NEGATIVE) Urine Occult Blood (NEGATIVE) Urine Nitrite (NEGATIVE) Urine Bilirubin (NEGATIVE) Urine Urobilinogen (0.2-1.0) mg/dL Ur Leukocyte Esterase (NEGATIVE) Urine RBC /HPF Urine WBC (0-5/HPF) /HPF Ur Epithelial Cells (NOT SEEN) /HPF Amorphous Sediment (NOT SEEN) /HPF Urine Bacteria (0-FEW/HPF) /HPF Urine Mucus (NOT SEEN) /LPF Ketones Meds: Medications Discontinued Medications Generic Name Dose Route Start Last Admin Trade Name Freq PRN Reason Stop Dose Admin Insulin Human Regular 5 unit 08/04/19 00:59 08/04/19 01:10 Humulin R IV 08/04/19 01:00 5 units ONETIME ONE Administration Morphine Sulfate 2 mg 08/04/19 00:59 08/04/19 01:06 Morphine IVPUSH 08/04/19 01:00 2 mg ONETIME ONE Administration Departure - Departure Time of Disposition: 05:02 Disposition: Home, Self-Care 01 Condition: Fair Clinical Impression: Nonspecific chest pain, Noncompliance with medication regimen, Hyperglycemia Instructions: Hyperglycemia, [id number], Nonspecific Chest Pain, [id number] Forms: ED Department Discharge Care Plan Goals: The patient was advised of the examination, lab, EKG, x-ray and repeat lab results during the visit. The patient was given aspirin (by EMS), nitroglycerin (by EMS), Zofran (by EMS), insulin and morphine during this episode. The patient was advised to fill her medications and take them as directed. The patient should follow-up with her primary care facility for further evaluation of her chest pain (stress test). If the patient has any additional symptoms or concerns, the patient should visit her primary care facility or return to the emergency department. Sepsis Event Note - Focused Exam Vital Signs: Vital Signs Temp Pulse Resp BP Pulse Ox 08/04/19 01:27 36.5 C 112 H 12 159/88 H 99 08/04/19 00:05 36.5 C 124 H 18 156/90 H 100 Date Exam was Performed: 08/04/19 Time Exam was Performed: 05:02 - My Orders Last 24 Hours: My Active Orders 08/04/19 00:07 EKG Documentation Completion [RC] URGENT Chest 1V Frontal [CR] Urgent 08/04/19 01:45 Blood Glucose Check, Bedside [RC] ONETIME 08/04/19 02:45 Blood Glucose Check, Bedside [RC] ONETIME 08/04/19 03:45 Blood Glucose Check, Bedside [RC] ONETIME - Assessment/Plan Last 24 Hours: My Active Orders 08/04/19 00:07 EKG Documentation Completion [RC] URGENT Chest 1V Frontal [CR] Urgent 08/04/19 01:45 Blood Glucose Check, Bedside [RC] ONETIME 08/04/19 02:45 Blood Glucose Check, Bedside [RC] ONETIME 08/04/19 03:45 Blood Glucose Check, Bedside [RC] ONETIME
[2019-08-04 00:39] LABS: CHLORIDE,CL 98 mmol/L (101-111); SODIUM,NA 134 mmol/L (135-145)
[2019-08-04] MEDS ORDERED: Insulin Regular, Human 100 Units/ML 3 ML Vial IV ONE (00:59)
[2019-08-04] MEDS ORDERED: Morphine 2 MG/ML Syringe IVPUSH ONE (00:59)
[2019-08-04 01:29] VITALS: BP 159/88; PULSE 112
== END 2019-08-04 05:15 | disposition home or self-care (01) ==
LOC: DL.ED 00:04
DX: R07.9 Chest pain, unspecified (principal); E11.65 Type 2 diabetes mellitus with hyperglycemia; Z91.14 Patient's other noncompliance with medication regimen; I10 Essential (primary) hypertension; E78.00 Pure hypercholesterolemia, unspecified; K21.9 Gastro-esophageal reflux disease without esophagitis; F41.0 Panic disorder [episodic paroxysmal anxiety]; E66.9 Obesity, unspecified; Z88.8 Allergy status to other drugs, medicaments and biological substances; Z88.0 Allergy status to penicillin; Z88.1 Allergy status to other antibiotic agents; Z91.018 Allergy to other foods; Z91.048 Other nonmedicinal substance allergy status; Z79.82 Long term (current) use of aspirin; Z79.4 Long term (current) use of insulin; Z79.899 Other long term (current) drug therapy
CPT/HCPCS: 36415; 71045; 80053; 81001; 82009; 82962; 84484; 85025; 85379; 93005; 96374; 99285; J1815; J2270

== ENCOUNTER 2019-11-14 00:52 | Emergency (ER) | payer MEDICAID ==
[2019-11-14 00:58] VITALS: BP 153/72; PULSE 110
--- NOTE | 2019-11-14 01:26 | EDM.PDOC ---
ED HPI GENERAL MEDICAL PROBLEM - General Chief Complaint: Chest Pain Stated Complaint: AMBULANCE Time Seen by Provider: 11/14/19 01:23 Source of Information: Reports: Patient History Limitations: Reports: No Limitations - History of Present Illness INITIAL COMMENTS - FREE TEXT/NARRATIVE: onset mid chest pain while watching TV. has h/o anxiety and taking Rx. Mid-Sternal Chest Pain Score (Numeric/FACES): 4 - Related Data Allergies Allergy/AdvReac Type Severity Reaction Status Date / Time amoxicillin Allergy Rash Verified 02/15/19 04:17 ampicillin Allergy Rash Verified 02/15/19 04:17 lactose Allergy Diarrhea Verified 02/15/19 04:17 lisinopril Allergy Cough Verified 02/15/19 04:17 Penicillins Allergy Rash Verified 02/15/19 04:17 tomato Allergy Other Verified 02/15/19 04:17 kwell Allergy Other Uncoded 02/15/19 04:17 seasonal allergies Allergy Other Uncoded 02/15/19 04:17 Home Meds: Home Meds Aspirin [Adult Low Dose Aspirin EC] 81 mg PO DAILY 11/17/13 [History] PARoxetine HCl [Paroxetine HCl] 40 mg PO DAILY 11/17/13 [History] Insulin Detemir [Levemir] 45 units SQ BID 05/11/14 [History] Calcium Citrate/Vitamin D3 [Calcium Cit-Vit D 315-200] 1 tab PO BID 02/09/18 [ History] Cetirizine HCl [All Day Allergy] 10 mg PO DAILY 02/09/18 [History] Cholecalciferol (Vitamin D3) [Vitamin D3] 2,000 mg PO DAILY 02/09/18 [History] Insulin Aspart [Novolog Flexpen] 15 units SQ TIDMEALS 02/09/18 [History] Pioglitazone HCl [Actos] 30 mg PO DAILY 02/09/18 [History] Saxagliptin HCl [Onglyza] 5 mg PO DAILY 02/09/18 [History] atorvaSTATin Calcium [Atorvastatin Calcium] 40 mg PO DAILY 02/09/18 [History] metFORMIN HCl [Metformin HCl] 1,000 mg PO BID 02/09/18 [History] Losartan [Cozaar] 25 mg PO DAILY 03/11/18 [History] Pantoprazole Sodium 40 mg PO DAILY 03/11/18 [History] Past Medical History HEENT History: Reports: Allergic Rhinitis, Impaired Vision Cardiovascular History: Reports: Angina, High Cholesterol, Hypertension Other Respiratory History: has been treated for asthma but states she isn't sure that she has asthma Gastrointestinal History: Reports: Chronic Constipation, Chronic Diarrhea, GERD Genitourinary History: Reports: None 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 Neurological History: Reports: None Psychiatric History: Reports: Panic Attack Endocrine/Metabolic History: Reports: Diabetes, Type II, IDDM, Obesity/BMI 30+ Hematologic History: Reports: None Immunologic History: Reports: None Oncologic (Cancer) History: Reports: None Dermatologic History: Reports: Eczema - Infectious Disease History Infectious Disease History: Reports: MRSA - Past Surgical History Head Surgeries/Procedures: Reports: None GI Surgical History: Reports: Appendectomy, Cholecystectomy Social & Family History - Family History Family Medical History: Noncontributory Endocrine/Metabolic: Reports: Diabetes, type II - Tobacco Use Smoking Status *Q: Never Smoker Second Hand Smoke Exposure: No - Caffeine Use Caffeine Use: Reports: Coffee, Soda, Tea Other Caffeine Use: 2 cup/AM - Recreational Drug Use Recreational Drug Use: No - Living Situation & Occupation Living situation: Reports: with Family Occupation: Employed ED ROS GENERAL - Review of Systems Review Of Systems: Comprehensive ROS is negative, except as noted in HPI. ED EXAM, GENERAL - Physical Exam Exam: See Below Exam Limited By: No Limitations General Appearance: Alert, WD/WN, Anxious, Mild Distress, Other (upset) Ears: Hearing Grossly Normal Throat/Mouth: Normal Voice, No Airway Compromise Head: Atraumatic Neck: Non-Tender, Full Range of Motion Respiratory/Chest: No Respiratory Distress Cardiovascular: Regular Rate, Rhythm GI/Abdominal: Soft, Non-Tender Neurological: Alert, Oriented, Normal Cognition, Normal Gait, No Motor/Sensory Deficits Psychiatric: Flat Affect, Tearful Skin Exam: Warm, Dry, Normal Color Lymphatic: No Adenopathy Course - Vital Signs Last Recorded V/S: Last Vital Signs Temp 36.6 C 11/14/19 00:53 Pulse 110 H 11/14/19 00:53 Resp 18 11/14/19 00:53 BP 153/72 H 11/14/19 00:53 Pulse Ox 100 11/14/19 00:53 - Orders/Labs/Meds Orders: Active Orders 24 hr Category Date Time Status EKG Documentation Completion [RC] STAT Care 05/23/20 01:02 Active Chest 1V Frontal [CR] Urgent Exams 11/14/19 01:30 Taken Labs: Laboratory Tests 11/14/19 11/14/19 Range/Units 01:01 01:01 WBC 7.3 (5.0-10.0) 10^3/uL RBC 4.78 (4.2-5.4) 10^6/uL Hgb 13.9 (12.0-16.0) g/dL Hct 40.4 (37.0-47.0) % MCV 84.5 (80-100) fL MCH 29.1 (27.0-34.0) pg MCHC 34.4 (33.0-35.0) g/dL Plt Count 226 (150-450) 10^3/uL Neut % (Auto) 51.7 (42.2-75.2) % Lymph % (Auto) 37.9 (20.5-50.1) % Sac % (Auto) 7.9 (2-8) % Eos % (Auto) 1.5 (1.0-3.0) % Baso % (Auto) 1.0 (0.0-1.0) % Sodium 135 L (136-145) mmol/L Potassium 3.7 (3.5-5.1) mmol/L Chloride 97 L (98-107) mmol/L Carbon Dioxide 30 (21-32) mmol/L Anion Gap 11.7 (7-13) mEq/L BUN 17 (7-18) mg/dL Creatinine 1.09 H (0.55-1.02) mg/dL Est Cr Clr Drug Dosing 41.93 mL/min Estimated GFR (MDRD) 51 BUN/Creatinine Ratio 15.6 (No establ ref range) Glucose 397 H (74-99) mg/dL Calcium 9.1 (8.5-10.1) mg/dL Total Bilirubin 0.3 (0.2-1.0) mg/dL AST 18 (15-37) U/L ALT 26 (14-59) U/L Alkaline Phosphatase 172 H (46-116) U/L Troponin I < 0.017 (0.000-0.056) ng/mL Total Protein 7.1 (6.4-8.2) g/dL Albumin 3.5 (3.4-5.0) g/dL Globulin 3.6 Albumin/Globulin Ratio 1.0 Meds: Medications Discontinued Medications Generic Name Dose Route Start Last Admin Trade Name Yumiko PRN Reason Stop Dose Admin Lorazepam 1 mg 11/14/19 01:50 11/14/19 01:54 Ativan PO 11/14/19 01:51 1 mg ONETIME ONE Administration - Re-Assessments/Exams Free Text/Narrative Re-Assessment/Exam: 11/14/19 01:51 results discussed with pt who states has anxiety problems but her Rx are not working well. Departure - Departure Time of Disposition: 02:02 Disposition: Home, Self-Care 01 Condition: Good Clinical Impression: Atypical chest pain, Anxiety Instructions: Nonspecific Chest Pain, Adult, [id number] Referrals: PCP,None [Ordering Only Provider] - Forms: ED Department Discharge Additional Instructions: 1) follow up at clinic rx given; hydroxyzine 25mg tid x 12 Sepsis Event Note - Evaluation Sepsis Screening Result: No Definite Risk - Focused Exam Vital Signs: Vital Signs Temp Pulse Resp BP Pulse Ox 11/14/19 00:53 36.6 C 110 H 18 153/72 H 100 Date Exam was Performed: 11/14/19 Time Exam was Performed: 02:17 - My Orders Last 24 Hours: My Active Orders 11/14/19 01:02 EKG Documentation Completion [RC] STAT 11/14/19 01:30 Chest 1V Frontal [CR] Urgent - Assessment/Plan Last 24 Hours: My Active Orders 11/14/19 01:02 EKG Documentation Completion [RC] STAT 11/14/19 01:30 Chest 1V Frontal [CR] Urgent
[2019-11-14 01:31] LABS: ANION GAP 11.7 mEq/L (7-13); CHLORIDE,CL 97 mmol/L (98-107); SODIUM,NA 135 mmol/L (136-145)
[2019-11-14] MEDS ORDERED: LORazepam 1 MG Tab PO ONE (01:50)
== END 2019-11-14 02:02 | disposition home or self-care (01) ==
LOC: DL.ED 00:52
DX: R07.89 Other chest pain (principal); F41.9 Anxiety disorder, unspecified; E78.00 Pure hypercholesterolemia, unspecified; I10 Essential (primary) hypertension; E11.9 Type 2 diabetes mellitus without complications; E66.9 Obesity, unspecified; K21.9 Gastro-esophageal reflux disease without esophagitis; Z88.0 Allergy status to penicillin; Z88.1 Allergy status to other antibiotic agents; Z91.048 Other nonmedicinal substance allergy status; Z88.8 Allergy status to other drugs, medicaments and biological substances; Z91.018 Allergy to other foods; Z79.82 Long term (current) use of aspirin; Z79.4 Long term (current) use of insulin; Z79.899 Other long term (current) drug therapy; Z68.42 Body mass index [BMI] 45.0-49.9, adult
CPT/HCPCS: 36415; 71045; 80053; 84484; 85025; 93005; 99285; A9270

== ENCOUNTER 2020-04-20 21:01 | Emergency (ER) | payer MEDICAID ==
[2020-04-20] MEDS ORDERED: Aspirin 81 MG Tab.Chew ONE (21:09)
[2020-04-20] MEDS ORDERED: Nitroglycerin 0.4 MG Tab.SL ONE (21:13)
[2020-04-20 21:46] VITALS: BP 121/97; PULSE 103
--- NOTE | 2020-04-20 22:02 | CR ---
PROCEDURE INFORMATION: Exam: XR Chest, 1 View Exam date and time: 04/20/2020 9:28 PM Age: 59 years old Clinical indication: Chest pain; Type not specified TECHNIQUE: Imaging protocol: XR of the chest Views: 1 view. COMPARISON: CR Chest 1V Frontal 11/14/2019 1:35 AM FINDINGS: Lungs: Unremarkable. No consolidation. Pleural space: Unremarkable. No pleural effusion. No pneumothorax. Heart/Mediastinum: Unremarkable. No cardiomegaly. Bones/joints: Unremarkable. IMPRESSION: No acute findings.
[2020-04-20 22:08] LABS: ANION GAP 9.5 mEq/L (7-13); CHLORIDE,CL 105 mmol/L (98-107); SODIUM,NA 142 mmol/L (136-145)
--- NOTE | 2020-04-20 22:51 | EDM.PDOC ---
ED HPI GENERAL MEDICAL PROBLEM - General Chief Complaint: Chest Pain Stated Complaint: CHEST PAINS Time Seen by Provider: 04/20/20 21:15 Source of Information: Reports: Patient History Limitations: Reports: No Limitations - History of Present Illness INITIAL COMMENTS - FREE TEXT/NARRATIVE: ED with c/o sudden onset chest pain more on right side some ache left arm approximately 45 minutes ago. Lying watching TV at onset. Describes multiple episodes similar in past question if anxiety. Just saw fortune cookie maker 2 weeks ago. Echo pending. No SOB no cough no fever. Recent COVID 03/24 with symptoms resolved. Mild cough with COVID, Denied SOB with sx. Compliant with meds. Takes baby aspirin daily. Rates /o, sharp. . Mid-Sternal Chest Pain Score (Numeric/FACES): 8 - Related Data Allergies Allergy/AdvReac Type Severity Reaction Status Date / Time amoxicillin Allergy Rash Verified 02/15/19 04:17 ampicillin Allergy Rash Verified 02/15/19 04:17 lactose Allergy Diarrhea Verified 02/15/19 04:17 lisinopril Allergy Cough Verified 02/15/19 04:17 Penicillins Allergy Rash Verified 02/15/19 04:17 tomato Allergy Other Verified 02/15/19 04:17 kwell Allergy Other Uncoded 02/15/19 04:17 seasonal allergies Allergy Other Uncoded 02/15/19 04:17 Home Meds: Home Meds Aspirin [Adult Low Dose Aspirin EC] 81 mg PO DAILY 11/17/13 [History] PARoxetine HCl [Paroxetine HCl] 40 mg PO DAILY 11/17/13 [History] Insulin Detemir [Levemir] 45 units SQ BID 05/11/14 [History] Calcium Citrate/Vitamin D3 [Calcium Cit-Vit D 315-200] 1 tab PO BID 02/09/18 [History] Cetirizine HCl [All Day Allergy] 10 mg PO DAILY 02/09/18 [History] Cholecalciferol (Vitamin D3) [Vitamin D3] 2,000 mg PO DAILY 02/09/18 [History] Insulin Aspart [Novolog Flexpen] 15 units SQ TIDMEALS 02/09/18 [History] Pioglitazone HCl [Actos] 30 mg PO DAILY 02/09/18 [History] Saxagliptin HCl [Onglyza] 5 mg PO DAILY 02/09/18 [History] atorvaSTATin Calcium [Atorvastatin Calcium] 40 mg PO DAILY 02/09/18 [History] metFORMIN HCl [Metformin HCl] 1,000 mg PO BID 02/09/18 [History] Losartan [Cozaar] 25 mg PO DAILY 03/11/18 [History] Pantoprazole Sodium 40 mg PO DAILY 03/11/18 [History] Past Medical History HEENT History: Reports: Allergic Rhinitis, Impaired Vision Cardiovascular History: Reports: Angina, High Cholesterol, Hypertension Other Respiratory History: has been treated for asthma but states she isn't sure that she has asthma Gastrointestinal History: Reports: Chronic Constipation, Chronic Diarrhea, GERD Genitourinary History: Reports: None 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 Neurological History: Reports: None Psychiatric History: Reports: Panic Attack Endocrine/Metabolic History: Reports: Diabetes, Type II, IDDM, Obesity/BMI 30+ Hematologic History: Reports: None Immunologic History: Reports: None Oncologic (Cancer) History: Reports: None Dermatologic History: Reports: Eczema - Infectious Disease History Infectious Disease History: Reports: None - Past Surgical History Head Surgeries/Procedures: Reports: None GI Surgical History: Reports: Appendectomy, Cholecystectomy Social & Family History - Family History Family Medical History: Noncontributory Endocrine/Metabolic: Reports: Diabetes, type II - Tobacco Use Tobacco Use Status *Q: Never Tobacco User Second Hand Smoke Exposure: No - Caffeine Use Caffeine Use: Reports: Coffee Other Caffeine Use: 2 cup/AM - Recreational Drug Use Recreational Drug Use: No - Living Situation & Occupation Living situation: Reports: with Family Occupation: Employed ED ROS GENERAL - Review of Systems Review Of Systems: Comprehensive ROS is negative, except as noted in HPI. ED EXAM, GENERAL - Physical Exam Exam: See Below Exam Limited By: No Limitations General Appearance: Alert, Anxious Eye Exam: Bilateral Eye: EOMI Ears: Normal External Exam Nose: Normal Inspection Throat/Mouth: Normal Inspection Head: Atraumatic, Normocephalic Neck: Normal Inspection, Full Range of Motion Respiratory/Chest: No Respiratory Distress, Lungs Clear, Normal Breath Sounds, Chest Non-Tender. No: Respiratory Distress, Rales, Rhonchi, Wheezing Cardiovascular: Regular Rate, Rhythm, Tachycardia (110's on presntation) GI/Abdominal: Normal Bowel Sounds, Soft, Non-Tender Extremities: Normal Inspection, Normal Range of Motion Neurological: Alert, Oriented Psychiatric: Normal Affect, Anxious (mild) Skin Exam: Warm, Dry, Intact, Normal Color Course - Vital Signs Last Recorded V/S: Last Vital Signs Temp 98.0 F 04/20/20 21:21 Pulse 103 H 04/20/20 21:45 Resp 16 04/20/20 21:45 BP 121/97 H 04/20/20 21:45 Pulse Ox 96 04/20/20 21:45 - Orders/Labs/Meds Orders: Active Orders 24 hr Category Date Time Status EKG 12 Lead [EKG Documentation Completion] [RC] URGENT Care 04/20/20 00:30 Active EKG 12 Lead [EKG Documentation Completion] [RC] URGENT Care 04/20/20 21:42 Active Labs: Laboratory Tests 04/20/20 04/20/20 04/20/20 Range/Units 21:13 21:13 21:13 WBC 8.3 (5.0-10.0) 10^3/uL RBC 4.46 (4.2-5.4) 10^6/uL Hgb 12.4 D (12.0-16.0) g/dL Hct 38.0 (37.0-47.0) % MCV 85.2 (80-100) fL MCH 27.8 (27.0-34.0) pg MCHC 32.6 L (33.0-35.0) g/dL Plt Count 250 (150-450) 10^3/uL Neut % (Auto) 60.5 (42.2-75.2) % Lymph % (Auto) 30.0 (20.5-50.1) % [place] % (Auto) 7.8 (2-8) % Eos % (Auto) 1.3 (1.0-3.0) % Baso % (Auto) 0.4 (0.0-1.0) % PT 9.6 (9.0-12.0) SEC INR 1.0 (0.9-1.2) D-Dimer, Quantitative 179 (0-400) ng/mL Sodium 142 (136-145) mmol/L Potassium 3.5 (3.5-5.1) mmol/L Chloride 105 (98-107) mmol/L Carbon Dioxide 31 (21-32) mmol/L Anion Gap 9.5 (7-13) mEq/L BUN 13 (7-18) mg/dL Creatinine 0.95 (0.55-1.02) mg/dL Est Cr Clr Drug Dosing 48.11 mL/min Estimated GFR (MDRD) > 60 BUN/Creatinine Ratio 13.7 (No establ ref range) Glucose 142 H (74-99) mg/dL Calcium 8.5 (8.5-10.1) mg/dL Total Bilirubin 0.5 (0.2-1.0) mg/dL AST 21 (15-37) U/L ALT 27 (14-59) U/L Alkaline Phosphatase 122 H (46-116) U/L Troponin I < 0.017 (0.000-0.056) ng/mL B-Natriuretic Peptide (0-100) pg/ml Total Protein 7.0 (6.4-8.2) g/dL Albumin 3.5 (3.4-5.0) g/dL Globulin 3.5 Albumin/Globulin Ratio 1.0 Amylase 34 (25-115) U/L Lipase 95 (73-393) U/L TSH, Ultra Sensitive 8.87 H (0.36-3.74) uIU/mL 04/20/20 04/21/20 Range/Units 21:13 00:36 WBC (5.0-10.0) 10^3/uL RBC (4.2-5.4) 10^6/uL Hgb (12.0-16.0) g/dL Hct (37.0-47.0) % MCV (80-100) fL MCH (27.0-34.0) pg MCHC (33.0-35.0) g/dL Plt Count (150-450) 10^3/uL Neut % (Auto) (42.2-75.2) % Lymph % (Auto) (20.5-50.1) % [place] % (Auto) (2-8) % Eos % (Auto) (1.0-3.0) % Baso % (Auto) (0.0-1.0) % PT (9.0-12.0) SEC INR (0.9-1.2) D-Dimer, Quantitative (0-400) ng/mL Sodium (136-145) mmol/L Potassium (3.5-5.1) mmol/L Chloride (98-107) mmol/L Carbon Dioxide (21-32) mmol/L Anion Gap (7-13) mEq/L BUN (7-18) mg/dL Creatinine (0.55-1.02) mg/dL Est Cr Clr Drug Dosing mL/min Estimated GFR (MDRD) BUN/Creatinine Ratio (No establ ref range) Glucose (74-99) mg/dL Calcium (8.5-10.1) mg/dL Total Bilirubin (0.2-1.0) mg/dL AST (15-37) U/L ALT (14-59) U/L Alkaline Phosphatase (46-116) U/L Troponin I < 0.017 (0.000-0.056) ng/mL B-Natriuretic Peptide 25 (0-100) pg/ml Total Protein (6.4-8.2) g/dL Albumin (3.4-5.0) g/dL Globulin Albumin/Globulin Ratio Amylase (25-115) U/L Lipase (73-393) U/L TSH, Ultra Sensitive (0.36-3.74) uIU/mL Meds: Medications Discontinued Medications Generic Name Dose Route Start Last Admin Trade Name Freq PRN Reason Stop Dose Admin Aspirin Confirm 04/20/20 21:09 04/20/20 21:11 Aspirin Administered 04/20/20 21:10 324 mg Dose Administration 324 mg .ROUTE .STK-MED ONE Nitroglycerin Confirm 04/20/20 21:13 04/20/20 21:15 Nitrostat Administered 04/20/20 21:14 0.4 mg Dose Administration 0.4 mg .ROUTE .STK-MED ONE - Re-Assessments/Exams Free Text/Narrative Re-Assessment/Exam: 04/20/20 23:03 Complete resolution with one nitro. Initial EKG no acute findings. Sinus occasional PAC. 04/21/20 01:26 No further Chest pain, monitor sinus. Vitals stable. Repeat troponin negative. Instructed on need for follow up to confirm schedule for echo and follow with PCP regarding elevated TSH. Departure - Departure Time of Disposition: : Disposition: Home, Self-Care 01 Condition: Good Clinical Impression: Atypical chest pain Hypothyroidism Qualifiers: Hypothyroidism type: unspecified Qualified Code(s): E03.9 - Hypothyroidism, unspecified Instructions: Nonspecific Chest Pain, Adult Forms: ED Department Discharge Additional Instructions: Call hospital radiology scheduling to get date and time for echo follow up with primary care for elevated thyroid study urgent follow up if chest pain, difficulty breathing dizziness take medications as directed Sepsis Event Note (ED) - Evaluation Sepsis Screening Result: No Definite Risk - Focused Exam Vital Signs: Vital Signs Temp Pulse Resp BP BP Pulse Ox 04/20/20 21:45 103 H 16 121/97 H 96 04/20/20 21:21 98.0 F 115 H 20 176/77 H 99 04/20/20 21:15 176/77 H - My Orders Last 24 Hours: My Active Orders 04/20/20 00:30 EKG 12 Lead [EKG Documentation Completion] [RC] URGENT 04/20/20 21:42 EKG 12 Lead [EKG Documentation Completion] [RC] URGENT - Assessment/Plan Last 24 Hours: My Active Orders 04/20/20 00:30 EKG 12 Lead [EKG Documentation Completion] [RC] URGENT 04/20/20 21:42 EKG 12 Lead [EKG Documentation Completion] [RC] URGENT
== END 2020-04-21 01:38 | disposition home or self-care (01) ==
LOC: DL.ED 21:01
DX: R07.89 Other chest pain (principal); E03.9 Hypothyroidism, unspecified; E11.9 Type 2 diabetes mellitus without complications; E66.9 Obesity, unspecified; Z68.42 Body mass index [BMI] 45.0-49.9, adult; Z79.899 Other long term (current) drug therapy; Z88.1 Allergy status to other antibiotic agents; Z91.048 Other nonmedicinal substance allergy status; Z88.8 Allergy status to other drugs, medicaments and biological substances; Z88.0 Allergy status to penicillin; Z91.018 Allergy to other foods; Z79.82 Long term (current) use of aspirin; Z79.4 Long term (current) use of insulin
CPT/HCPCS: 36415; 71045; 80053; 82150; 83690; 83880; 84443; 84484; 85025; 85379; 85610; 93005; 93010; 99284; 99285-25; A9270-GY

== ENCOUNTER 2021-10-08 02:29 | Emergency (ER) | payer MEDICAID ==
[2021-10-08] MEDS ORDERED: Aspirin 81 MG Tab.Chew PO ONE (03:12)
[2021-10-08] MEDS ORDERED: Sodium Chloride 0.9% 10 ML Syringe FLUSH PRN (03:12)
[2021-10-08 03:38] LABS: ANION GAP 11.8 mEq/L (7-13); CHLORIDE,CL 103 mmol/L (98-107); SODIUM,NA 139 mmol/L (136-145)
[2021-10-08 04:12] LABS: AMPHETAMINES,URINE NEGATIVE (NEGATIVE); BARBITURATES,URINE NEGATIVE (NEGATIVE); BENZODIAZEPINE,URINE NEGATIVE (NEGATIVE); MDMA (ECSTASY), URINE NEGATIVE (NEGATIVE); METHADONE,URINE NEGATIVE (NEGATIVE); METHAMPHETAMINES,URINE NEGATIVE (NEGATIVE); OPIATES,URINE NEGATIVE (NEGATIVE); OXYCODONE,URINE NEGATIVE (NEGATIVE); PHENCYCLIDINE,URINE NEGATIVE (NEGATIVE); TCA,URINE NEGATIVE (NEGATIVE)
[2021-10-08 08:20] VITALS: BP 172/59; PULSE 75
== END 2021-10-08 09:00 | disposition home or self-care (01) ==
LOC: DL.ED 02:29
DX: R07.89 Other chest pain (principal); E78.00 Pure hypercholesterolemia, unspecified; I10 Essential (primary) hypertension; K21.9 Gastro-esophageal reflux disease without esophagitis; Z88.0 Allergy status to penicillin; Z91.011 Allergy to milk products; Z91.018 Allergy to other foods; Z88.8 Allergy status to other drugs, medicaments and biological substances; Z79.82 Long term (current) use of aspirin; Z79.4 Long term (current) use of insulin; Z79.899 Other long term (current) drug therapy
CPT/HCPCS: 36415; 71045; 80053; 80305-QW; 81001; 83690; 83735; 84439; 84484; 85025; 85379; 87086; 87088; 87186; 93005; 99285-25; A9270-GY; J3490

== ENCOUNTER 2022-04-15 14:10 | Inpatient (IN) | payer MEDICAID ==
[2022-04-15] MEDS ORDERED: Sodium Chloride 0.9% 1,000 ML IV ONE (14:49)
[2022-04-15] MEDS ORDERED: HYDROmorphone 1 MG/ML Syringe IVPUSH ONE (14:49)
[2022-04-15] MEDS ORDERED: Ondansetron 4 MG/2 ML SDV IVPUSH ONE (14:49)
[2022-04-15] MEDS ORDERED: cefTRIAXone 2 GM in Sodium Chloride 0.9% 100 ML IV ONE (14:50)
[2022-04-15 16:07] LABS: ANION GAP 11.3 mEq/L (7-13)
[2022-04-15] MEDS ORDERED: Iopamidol 612 MG/ML 100 ML Bottle IVPUSH ONE (16:25)
[2022-04-15] MEDS ORDERED: Magnesium Hydroxide 400 MG/5 ML Susp 30 ML Cup PO PRN (19:14)
[2022-04-15] MEDS ORDERED: Polyethylene Glycol 3350 Powder 17 GM Packet PO PRN (19:14)
[2022-04-15] MEDS ORDERED: Albuterol/Ipratropium 3.0-0.5 MG/3 ML Neb Soln NEB PRN (19:14)
[2022-04-15] MEDS ORDERED: HYDROmorphone 0.5 MG/0.5 ML Syringe IVPUSH PRN (19:14)
[2022-04-15] MEDS ORDERED: 50% Dextrose in Water 50 ML Syringe IVPUSH PRN (19:26)
[2022-04-15] MEDS ORDERED: Glucagon,Human Recombinant 1 MG Vial IM PRN (19:26)
[2022-04-15] MEDS ORDERED: VANCOMYCIN IV SCH (19:30)
[2022-04-15] MEDS ORDERED: SODIUM CHLORIDE 0.9% IV SCH (19:30)
[2022-04-15] MEDS ORDERED: Vancomycin 2 GM in Sodium Chloride 0.9% 500 ML IV ONE (19:45)
[2022-04-15] MEDS ORDERED: hydrALAZINE 20 MG/ML SDV IVPUSH PRN (19:58)
[2022-04-15] MEDS ORDERED: Metoprolol Tartrate 5 MG/5 ML SDV IVPUSH PRN (19:59)
[2022-04-15] MEDS: Zolpidem 5 MG Tab PO PRN (21:08)
[2022-04-15] MEDS: Acetaminophen/HYDROcodone 325-5 MG Tab PO PRN (22:10)
[2022-04-16] MEDS: Dextrose 5%-0.9% NaCl with KCl 1,000 ML IV SCH ×2 (00:17→15:05)
[2022-04-16 07:06] LABS: ANION GAP 11.4 mEq/L (7-13)
[2022-04-16] MEDS: Insulin Lispro 100 Units/ML 3 ML Vial SUBCUT SCH ×3 (08:04→17:15)
[2022-04-16] MEDS: cefTRIAXone 2 GM in Sodium Chloride 0.9% 100 ML IV SCH ×2 (08:37→21:05)
[2022-04-16] MEDS ORDERED: Magnesium Sulfate/Water 2 GM in Premix Bag 1 BAG IV ONE (08:41)
[2022-04-16] MEDS ORDERED: Potassium Chloride 10 MEQ Tab.ER PO ONE (08:41)
[2022-04-16] MEDS: Acetaminophen 325 MG Tab PO PRN ×2 (12:00→21:15)
[2022-04-16] MEDS ORDERED: Diclofenac Sodium 1% Gel 100 GM Tube TOP PRN (19:56)
[2022-04-16] MEDS: Insulin Glarg,Human.Rec.Analog 100 Unit/ML SUBCUT SCH (21:12)
[2022-04-16] MEDS: rOPINIRole 0.25 MG Tab PO SCH (21:14)
[2022-04-16] MEDS: Zolpidem 5 MG Tab PO PRN (21:15)
[2022-04-17] MEDS: Pantoprazole 40 MG Tab.CR PO SCH (05:28)
[2022-04-17] MEDS: Dextrose 5%-0.9% NaCl with KCl 1,000 ML IV SCH (05:30)
[2022-04-17 06:55] LABS: ANION GAP 11.2 mEq/L (7-13)
[2022-04-17] MEDS: cefTRIAXone 2 GM in Sodium Chloride 0.9% 100 ML IV SCH ×2 (08:04→21:49)
[2022-04-17] MEDS: Rosuvastatin 10 MG Tab PO SCH (08:06)
[2022-04-17] MEDS: FLUoxetine 10 MG Cap PO SCH (08:07)
[2022-04-17] MEDS: Cholecalciferol (Vitamin D3) 25 MCG Tab PO SCH (08:07)
[2022-04-17] MEDS: Aspirin 81 MG Tab.EC PO SCH (08:07)
[2022-04-17] MEDS: Losartan 50 MG Tab PO SCH (08:07)
[2022-04-17] MEDS: Insulin Glarg,Human.Rec.Analog 100 Unit/ML SUBCUT SCH ×2 (08:11→21:44)
[2022-04-17] MEDS: Insulin Lispro 100 Units/ML 3 ML Vial SUBCUT SCH ×3 (08:12→17:09)
[2022-04-17] MEDS ORDERED: [UNRECOGNIZED DRUG - REMARK] PO SCH (09:00)
[2022-04-17] MEDS ORDERED: SEMAGLUTIDE 2 MG/0.75 ML SQ SCH (10:00)
[2022-04-17] MEDS ORDERED: Magnesium Sulfate/Water 2 GM in Premix Bag 1 BAG IV ONE (10:27)
[2022-04-17] MEDS: Acetaminophen/HYDROcodone 325-5 MG Tab PO PRN ×2 (14:25→19:37)
[2022-04-17] MEDS ORDERED: Acetaminophen/Butalbital/Caffeine 325-50-40 MG Tab PO PRN (21:38)
[2022-04-17] MEDS: rOPINIRole 0.25 MG Tab PO SCH (21:46)
[2022-04-17] MEDS: Zolpidem 5 MG Tab PO PRN (21:47)
[2022-04-18] MEDS ORDERED: Famotidine 20 MG/2 ML SDV IVPUSH ONE (01:00)
[2022-04-18] MEDS ORDERED: Morphine 2 MG/ML SYRINGE IVPUSH ONE (01:00)
[2022-04-18] MEDS: Pantoprazole 40 MG Tab.CR PO SCH (06:00)
[2022-04-18 07:02] LABS: ANION GAP 11.1 mEq/L (7-13)
[2022-04-18] MEDS ORDERED: Magnesium Sulfate/Water 2 GM in Premix Bag 1 BAG IV ONE (07:45)
[2022-04-18 08:13] VITALS: BP 173/82; PULSE 83
[2022-04-18] MEDS: Insulin Lispro 100 Units/ML 3 ML Vial SUBCUT SCH (08:13)
[2022-04-18] MEDS: Losartan 50 MG Tab PO SCH (09:08)
[2022-04-18] MEDS: Rosuvastatin 10 MG Tab PO SCH (09:09)
[2022-04-18] MEDS: Aspirin 81 MG Tab.EC PO SCH (09:10)
[2022-04-18] MEDS: Cholecalciferol (Vitamin D3) 25 MCG Tab PO SCH (09:10)
[2022-04-18] MEDS: Insulin Glarg,Human.Rec.Analog 100 Unit/ML SUBCUT SCH (09:11)
[2022-04-18] MEDS: FLUoxetine 10 MG Cap PO SCH (09:11)
== END 2022-04-18 11:51 | disposition home or self-care (01) | DRG 872 ==
LOC: DL.ED 14:10 → DL.MS 18:22 → DL.ED 18:37
PROVIDERS: ADMIT Internal Medicine; ATTEND Internal Medicine
DX: A41.51 Sepsis due to Escherichia coli [E. coli] (principal); N10 Acute pyelonephritis; Z68.41 Body mass index [BMI] 40.0-44.9, adult; N17.9 Acute kidney failure, unspecified; D64.9 Anemia, unspecified; E11.65 Type 2 diabetes mellitus with hyperglycemia; R79.89 Other specified abnormal findings of blood chemistry; G47.33 Obstructive sleep apnea (adult) (pediatric); E66.01 Morbid (severe) obesity due to excess calories; I95.9 Hypotension, unspecified; E87.6 Hypokalemia; K59.09 Other constipation; I10 Essential (primary) hypertension; E78.5 Hyperlipidemia, unspecified; J45.909 Unspecified asthma, uncomplicated; K21.9 Gastro-esophageal reflux disease without esophagitis; F32.A Depression, unspecified; Z20.822 Contact with and (suspected) exposure to COVID-19; H54.7 Unspecified visual loss; K52.9 Noninfective gastroenteritis and colitis, unspecified; F41.0 Panic disorder [episodic paroxysmal anxiety]; Z88.1 Allergy status to other antibiotic agents; Z79.82 Long term (current) use of aspirin; Z79.4 Long term (current) use of insulin; Z79.899 Other long term (current) drug therapy; Z88.6 Allergy status to analgesic agent; Z91.011 Allergy to milk products; Z91.09 Other allergy status, other than to drugs and biological substances; Z79.84 Long term (current) use of oral hypoglycemic drugs; Z90.49 Acquired absence of other specified parts of digestive tract
CPT/HCPCS: 36415; 71045; 74177; 80053; 80202; 81001; 82533; 82947; 83605; 83735; 84145; 84484; 85025; 86140; 87040; 87086; 87088; 87186; 93005; A9270-GY; J0696; J1170; J1815-GY; J2405; J3370; J3475; J3480; J3490; J7030; J7040; Q9967; U0002

== ENCOUNTER 2022-12-09 14:21 | Emergency (ER) | payer MEDICAID ==
[2022-12-09 14:51] LABS: BILIRUBIN,URINE NEGATIVE (NEGATIVE); COLOR,URINE YELLOW (YELLOW); GLUCOSE,URINE 500 (NEGATIVE); KETONES,URINE NEGATIVE (NEGATIVE); LEUKOCYTE ESTERASE,URINE SMALL (NEGATIVE); NITRITE,URINE NEGATIVE (NEGATIVE); OCCULT BLOOD,URINE SMALL (NEGATIVE); PROTEIN,URINE NEGATIVE (NEGATIVE); UROBILINOGEN,URINE 0.2 mg/dL (0.2-1.0)
[2022-12-09 14:52] LABS: APPEARANCE,URINE SLIGHTLY CLOUDY (CLEAR)
[2022-12-09 14:59] LABS: BACTERIA,URINE MODERATE /HPF (0-FEW/HPF); EPITHELIAL CELLS,URINE FEW /HPF (NOT SEEN); MUCUS,URINE FEW /LPF (NOT SEEN); WBC,URINE 50-75 /HPF (0-5/HPF)
[2022-12-09] MEDS ORDERED: Take Home: Nitrofurantoin Monohydrate/Macrocrystalline 100 MG, 6 Cap Pack PO ONE (15:04)
[2022-12-09] MEDS ORDERED: Take Home: Phenazopyridine 95 MG Tab, 4 Tab Pack PO ONE (15:04)
[2022-12-09 15:28] VITALS: BP 156/72; PULSE 76
== END 2022-12-09 15:21 | disposition home or self-care (01) ==
LOC: DL.ED 14:21
DX: N39.0 Urinary tract infection, site not specified (principal); E78.00 Pure hypercholesterolemia, unspecified; I10 Essential (primary) hypertension; J44.9 Chronic obstructive pulmonary disease, unspecified; K21.9 Gastro-esophageal reflux disease without esophagitis; E11.9 Type 2 diabetes mellitus without complications; E66.9 Obesity, unspecified; Z68.41 Body mass index [BMI] 40.0-44.9, adult; Z88.0 Allergy status to penicillin; Z91.018 Allergy to other foods; Z88.8 Allergy status to other drugs, medicaments and biological substances; Z79.82 Long term (current) use of aspirin; Z79.4 Long term (current) use of insulin; Z79.899 Other long term (current) drug therapy
CPT/HCPCS: 81001; 87086; 87088; 87186; 99283; A9270

== ENCOUNTER 2023-07-30 00:59 | Emergency (ER) | payer BC, MEDICAID ==
[2023-07-30 00:58] VITALS: BP 191/95; PULSE 106
[2023-07-30 01:11] LABS: BASOPHILS PERCENT AUTO 0.3 % (0.0-1.0); EOSINOPHILS PERCENT AUTO 1.8 % (1.0-3.0); HEMATOCRIT 43.5 % (37.0-47.0); HEMOGLOBIN 14.3 g/dL (12.0-16.0); LYMPHOCYTES PERCENT AUTO 41.9 % (20.5-50.1); MEAN CORPUSCULAR HEMOGLOBIN 28.2 pg (27.0-34.0); MEAN CORPUSCULAR HGB CONC 32.9 g/dL (33.0-35.0); MEAN CORPUSCULAR VOLUME 85.8 fL (80-100); MONOCYTES PERCENT AUTO 7.2 % (2-8); NEUTROPHILS PERCENT AUTO 48.8 % (42.2-75.2); PLATELET COUNT,PLT 239 10^3/uL (150-450); RED BLOOD CELL COUNT 5.07 10^6/uL (4.2-5.4); WHITE BLOOD CELL COUNT,WBC 6.3 10^3/uL (5.0-10.0)
[2023-07-30] MEDS: Sodium Chloride 0.9% 10 ML Syringe FLUSH PRN (01:12)
[2023-07-30 01:30] LABS: A/G RATIO 0.9; ALBUMIN 3.6 g/dL (3.4-5.0); ANION GAP 10.8 mEq/L (7-13); BILIRUBIN TOTAL 0.3 mg/dL (0.2-1.0); BUN/CREATININE RATIO 22.2 (No establ ref range); CALCIUM 9.1 mg/dL (8.5-10.1); CREATININE 0.99 mg/dL (0.55-1.02); EST CRCL DRUG DOSING (CG) 44.46 mL/min; INR 0.9 (0.9-1.2); POTASSIUM,K 3.8 mmol/L (3.5-5.1); PROTEIN TOTAL,TP 7.4 g/dL (6.4-8.2); PROTHROMBIN TIME 9.2 SEC (9.0-12.0)
[2023-07-30] MEDS: hydrALAZINE 20 MG/ML SDV IVPUSH ONE (02:00)
[2023-07-31] MEDS: Metoprolol Tartrate 5 MG/5 ML SDV ONE (10:01)
== END 2023-07-30 03:17 | disposition home or self-care (01) ==
LOC: DL.ED 00:59
DX: R07.9 Chest pain, unspecified (principal); I10 Essential (primary) hypertension; E78.00 Pure hypercholesterolemia, unspecified; J44.9 Chronic obstructive pulmonary disease, unspecified; E66.9 Obesity, unspecified; E11.9 Type 2 diabetes mellitus without complications; Z68.42 Body mass index [BMI] 45.0-49.9, adult; Z88.0 Allergy status to penicillin; Z91.011 Allergy to milk products; Z91.018 Allergy to other foods; Z88.8 Allergy status to other drugs, medicaments and biological substances; Z91.048 Other nonmedicinal substance allergy status; Z79.82 Long term (current) use of aspirin; Z79.84 Long term (current) use of oral hypoglycemic drugs; Z79.4 Long term (current) use of insulin; Z79.899 Other long term (current) drug therapy; Z86.16 Personal history of COVID-19; Z90.49 Acquired absence of other specified parts of digestive tract
CPT/HCPCS: 36415; 71045; 80053; 84484; 85025; 85610; 93005; 93010; 96374; 99284; 99285; J0360; J3490

== ENCOUNTER 2023-10-30 07:40 | Emergency (ER) | payer BC ==
[2023-10-30 07:54] LABS: BASOPHILS PERCENT AUTO 0.7 % (0.0-1.0); EOSINOPHILS PERCENT AUTO 2.7 % (1.0-3.0); HEMATOCRIT 42.3 % (37.0-47.0); HEMOGLOBIN 13.5 g/dL (12.0-16.0); LYMPHOCYTES PERCENT AUTO 29.2 % (20.5-50.1); MEAN CORPUSCULAR HEMOGLOBIN 28.2 pg (27.0-34.0); MEAN CORPUSCULAR HGB CONC 31.9 g/dL (33.0-35.0); MEAN CORPUSCULAR VOLUME 88.5 fL (80-100); MONOCYTES PERCENT AUTO 7.2 % (2-8); NEUTROPHILS PERCENT AUTO 60.2 % (42.2-75.2); PLATELET COUNT,PLT 232 10^3/uL (150-450); RED BLOOD CELL COUNT 4.78 10^6/uL (4.2-5.4); WHITE BLOOD CELL COUNT,WBC 5.6 10^3/uL (5.0-10.0)
[2023-10-30 07:56] VITALS: PULSE 112
[2023-10-30] MEDS: Sodium Chloride 0.9% 10 ML Syringe FLUSH PRN (08:05)
[2023-10-30 08:10] VITALS: BP 146/81
[2023-10-30] MEDS: Nitroglycerin 0.4 MG Tab.SL SL PRN (08:10)
[2023-10-30 08:11] LABS: B-TYPE NATRIURETIC PEPTIDE,BNP 35 pg/ml (0-100)
[2023-10-30 08:28] LABS: ALANINE AMINOTRANSFERASE,ALT 14 U/L (14-59); ALBUMIN 3.4 g/dL (3.4-5.0); ALKALINE PHOSPHATASE 65 U/L (46-116); ANION GAP 12.8 mEq/L (7-13); ASPARTATE AMNIOTRANSFERASE,AST 12 U/L (15-37); BILIRUBIN TOTAL 0.3 mg/dL (0.2-1.0); BLOOD UREA NITROGEN,BUN 17 mg/dL (7-18); BUN/CREATININE RATIO 15.7 (No establ ref range); CARBON DIOXIDE,CO2 28 mmol/L (21-32); CHLORIDE,CL 104 mmol/L (98-107); CREATININE 1.08 mg/dL (0.55-1.02); GLUCOSE RANDOM 122 mg/dL (70-99); LIPASE 27 U/L (16-77); POTASSIUM,K 3.8 mmol/L (3.5-5.1); PROTEIN TOTAL,TP 6.8 g/dL (6.4-8.2); SODIUM,NA 141 mmol/L (136-145)
[2023-10-30 08:31] LABS: ESTIMATED GFR 58 mL/min (>=60)
== END 2023-10-30 10:34 | disposition home or self-care (01) ==
LOC: DL.ED 07:40
DX: R07.9 Chest pain, unspecified (principal); I10 Essential (primary) hypertension; E78.00 Pure hypercholesterolemia, unspecified; J44.9 Chronic obstructive pulmonary disease, unspecified; K21.9 Gastro-esophageal reflux disease without esophagitis; E11.9 Type 2 diabetes mellitus without complications; E66.9 Obesity, unspecified; Z86.16 Personal history of COVID-19; Z90.49 Acquired absence of other specified parts of digestive tract; Z79.4 Long term (current) use of insulin; Z79.84 Long term (current) use of oral hypoglycemic drugs; Z79.899 Other long term (current) drug therapy; Z88.0 Allergy status to penicillin; Z91.011 Allergy to milk products; Z91.018 Allergy to other foods; Z88.6 Allergy status to analgesic agent; Z88.8 Allergy status to other drugs, medicaments and biological substances; Z79.82 Long term (current) use of aspirin
CPT/HCPCS: 36415; 71045; 80053; 83690; 83880; 84484; 85025; 93005; 93010; 99284; 99285; A9270; J3490

== ENCOUNTER 2024-09-09 10:21 | Day surgery (SDC) | payer BC, OTHER ==
[~2024-09-09 10:21] MED LIST: Acetaminophen 325 MG Tab PO PRN; Acetaminophen/Codeine 300-30 MG Tab PO PRN; Cataract Ophth Solution EYELF ONE; Moxifloxacin 0.5% Ophth Soln 3 ML Bottle EYELF ONE; Ondansetron 4 MG/2 ML SDV IVPUSH PRN; Phenylephrine 10% Ophth Soln 5 ML Bot EYELF ONE; Povidone-Iodine 5% Sterile Ophth Soln 30 ML Bottle EYELF ONE; Proparacaine 0.5% Ophth Soln 15 ML Bottle EYELF ONE; Sodium Chloride 0.9% 10 ML Syringe FLUSH PRN; Timolol Maleate 0.5% Ophth Soln 5 ML Bottle EYELF ONE; Tropicamide 1% Ophth Soln 15 ML Bottle EYELF ONE
[2024-09-09] MEDS: Povidone-Iodine 5% Sterile Ophth Soln 30 ML Bottle EYELF ONE ×2 (10:30→11:45)
[2024-09-09] MEDS: Cataract Ophth Solution EYELF ONE (10:30)
[2024-09-09] MEDS: Timolol Maleate 0.5% Ophth Soln 5 ML Bottle EYELF ONE (10:30)
[2024-09-09] MEDS: Moxifloxacin 0.5% Ophth Soln 3 ML Bottle EYELF ONE (10:30)
[2024-09-09] MEDS: Tropicamide 1% Ophth Soln 15 ML Bottle EYELF ONE (10:30)
[2024-09-09] MEDS: Phenylephrine 10% Ophth Soln 5 ML Bot EYELF ONE (10:30)
[2024-09-09] MEDS: Proparacaine 0.5% Ophth Soln 15 ML Bottle EYELF ONE ×2 (10:30→11:44)
[2024-09-09] MEDS: Apraclonidine 0.5% Ophth Soln 5 ML Bot EYELF ONE (11:46)
[2024-09-09] MEDS: Diclofenac Sodium 0.1% Ophth Soln 5 ML Bottle EYELF ONE (11:46)
[2024-09-09] MEDS: Dexamethasone/Neomycin/Polymyxin B Ophth Oint 3.5 GM Tube EYELF ONE (11:47)
[2024-09-09] MEDS: Lidocaine 1% 30 ML SDV ONE (11:48)
[2024-09-09] MEDS: VANCOmycin 500 MG SDV EYELF ONE (11:48)
[2024-09-09 12:31] VITALS: BP 154/68; PULSE 78
== END 2024-09-09 12:44 | disposition home or self-care (01) ==
LOC: DL.SDS 10:21
PROVIDERS: ATTEND Ophthalmology
DX: E11.36 Type 2 diabetes mellitus with diabetic cataract (principal); H25.812 Combined forms of age-related cataract, left eye; I12.9 Hypertensive chronic kidney disease with stage 1 through stage 4 chronic kidney disease, or unspecified chronic kidney disease; E11.22 Type 2 diabetes mellitus with diabetic chronic kidney disease; N18.30 Chronic kidney disease, stage 3 unspecified; E78.5 Hyperlipidemia, unspecified; Z79.899 Other long term (current) drug therapy
CPT/HCPCS: A9270-GY; J3370; J3490